=== PATIENT | female | born 1940 | race Caucasian/White ===

== ENCOUNTER 2017-07-27 07:28 | Day surgery (SDC) | payer MEDICARE ==
[2017-07-27] MEDS ORDERED: ATEN25TA PO (08:06)
[2017-07-27] MEDS ORDERED: VENTAER INH (08:06)
[2017-07-27] MEDS ORDERED: PROPOFOL 200 MG/20 ML AMP ONE ×3 (08:26→09:44)
--- NOTE | 2017-07-27 10:30 | ECHRPT ---
Indication: MR CONCLUSIONS Normal left ventricular size and wall thickness. The left ventricular systolic function is normal wi th an estimated ejection fraction in the range of 60-65%. Left ventricular diastolic function parameters a re normal. Moderate thickening of the mitral valve leaflets. Mitral annular calcification is present. No mitral valve stenosis. Vgagcbvn-qu-ughzgf mitral valve regurgitation. Posterior mitral valve leaflet prolapse. Mild thickening of the tricuspid valve leaflets. There is mild tricuspid valve regurgitation. There is estimated mild pulmonary hypertension present (range 40-50 mmHg). No tricuspid valve stenosis. BP: / HR: Rhythm: MEASUREMENTS (Male / Female) Normal Values Technical Quality: DOPPLER TR Peak Velocity 300.0 cm/s TR Peak Gradient 36.0 mmHg Medications Complications Proc. Components FINDINGS LEFT VENTRICLE Normal left ventricular size and wall thickness. The left ventricular systolic function is normal wi th an estimated ejection fraction in the range of 60-65%. Left ventricular diastolic function parameters a re normal. RIGHT VENTRICLE Normal right ventricular size and systolic function. LEFT ATRIUM The left atrial size is normal. RIGHT ATRIUM The right atrial size is normal. ATRIAL APPENDAGES Normal left atrial appendage size with no evidence of thrombus formation. ATRIAL SEPTUM Normal atrial septal thickness without atrial level shunting by limited color doppler interrogation. AORTA The aortic root and proximal ascending aorta are normal in size on limited imaging. MITRAL VALVE Moderate thickening of the mitral valve leaflets. Mitral annular calcification is present. No mitral valve stenosis. Eghanpae-cy-kimcga mitral valve regurgitation. Posterior mitral valve leaflet prolapse. AORTIC VALVE Trileaflet aortic valve. No aortic valve stenosis or regurgitation. TRICUSPID VALVE Mild thickening of the tricuspid valve leaflets. There is mild tricuspid valve regurgitation. There is estimated mild pulmonary hypertension present (range 40-50 mmHg). No tricuspid valve stenosis. VESSELS The inferior vena cava is normal in size. PULMONARY VALVE The pulmonary valve is not well visualized. PERICADIUM No pericardial effusion. Balaji Ellsworth MD, FACC (Electronically Signed) Final Date:27 July 2017 10:30
== END 2017-07-27 10:57 | disposition home or self-care (01) ==
LOC: HDOC 07:28 → HDIC 07:29 → HDOC 10:57
PROVIDERS: ATTEND Internal Medicine
DX: I34.0 Nonrheumatic mitral (valve) insufficiency (principal); I27.20 Pulmonary hypertension, unspecified; R00.2 Palpitations; R06.02 Shortness of breath
CPT/HCPCS: 93312; 93320; 93325

== ENCOUNTER 2017-08-08 06:13 | Day surgery (SDC) | payer MEDICARE ==
[~2017-08-08] VITALS: Ht 165.1 cm; Wt 48.0 kg
[~2017-08-08 06:13] MED LIST: ATEN25TA PO; VENTAER INH
[2017-08-08] MEDS ORDERED: IOHEXOL 350 MG/ML 50 ML BTL (for Cath Lab) OTHER ONE (06:14)
[2017-08-08] MEDS ORDERED: NS 1000P @30 MLS/HR (KVO) IV SCH (06:30)
[2017-08-08 06:48] VITALS: BP 115/76; PULSE 62; RESP 18; TEMP 98; O2SAT 99
[2017-08-08] MEDS ORDERED: HEPARIN-NS/PF INJ 1,000 ML ONE (08:38)
[2017-08-08] MEDS ORDERED: MIDAZOLAM HCL 2 MG/2 ML VIAL ONE (08:38)
[2017-08-08] MEDS ORDERED: ATROPINE SULFATE 1 MG/ML VIAL IV PUSH PRN (09:30)
[2017-08-08] MEDS ORDERED: LORazepam 2 MG/ML VIAL IV PUSH PRN (09:30)
[2017-08-08] MEDS ORDERED: LIDOCAINE HCL 1% 50 ML VIAL INFIL PRN (09:30)
[2017-08-08] MEDS ORDERED: BACITRACIN OINT 0.9 GM PKT TOP ONE (09:30)
[2017-08-08] MEDS ORDERED: MISC INFORMATION XX ONE (09:30)
--- NOTE | 2017-08-08 09:33 | CATHPROC ---
[employer] HIS Report Study Information Study Number Admission Scheduled Start Study Start [id number] Aug 08 2017 6:13AM 08/08/2017 Aug 08 2017 8:38AM [facility] Service Cardiac Catheterization Admit Source Facility Department Other [facility] - [facility] Physician and Clinical Staff Initial Balaji Ennis Pediatric Ophthalmologist Tal Forbes RN Recorder Kika Carrera,RT(R) Scrub Lucy Cobos,RT(R) Procedures Performed Procedure Location (Site) Vessel Name Coronary Angiograms LCA Left Coronary Coronary Angiograms RCA Right Coronary Wire insertion Fem Vein (right) Femoral Vein Equipment Time General Operator Description Size Mfg Part Number Used/Scraped [employer] CATHETER, FR.7 BALLOON [id number] 08:48 FR 7 Used INC. WEDGE PRESSURE *[id number] TRANSDUCER, TRPharmaxisAVE [id number] 08:48 KAPLAN HORVATH * Used W/STOCKCOCK *[id number] 534-518T *[id number] 534-521T *[id number] [id number] *[id number] 08:48 MEDLINE INDUSTRIES PACK, CCL CUSTOM * Used *[id number] 08:48 MEDLINE PACER PEN, SKIN DUAL W/ RULER * Used *[id number] 08:48 Pansieve MEDICAL WIRE, 3MMJ .035 180CM 180CM Used *[id number] 08:48 NAMIC MANIFOLD, 2 PORT * Used *[id number] 08:48 NAMIC MANIFOLD, 4 PORT * Used *[id number] 08:48 NYCOMED OMNIPAQUE, 350 MG, 150ML 150ML [id number] Used [id number] 08:48 [facility] BLANKET,WARM AIR CCL * Used *[id number] 08:48 TERUMO MEDICAL SHEATH, FR5 TERUMO (10CM) FR 5 Used *[id number] 08:48 TERUMO MEDICAL SHEATH, FR7 TERUMO (10CM) FR 7 Used *[id number] History: Current Medications Medication Dosage/Unit Route Frequency Last Date/Time Taken Albuterol Beta Gabriel History: Allergies Allergy Reaction NKA History: Risk Factors Family History of Hypertension Dyslipidemia Previous ND Previous Heart Failure Premature CAD Yes No Yes No No Prior Valve Prior PCI Prior CABG Surgery No No No Cerebrovascular Peripheral Artery Chronic Lung On Dialysis Diabetes Disease Disease Disease No No No Yes No History: Symptoms/Diagnosis Selection Items Palpitations SOB History: Stress Tests Stress or Imaging Studies Performed No History: Other Current Smoker No Labs Hgb (g/dl) Hct (%) WBC (l/cumm) Platelets (thousands) 11.60-17.00 35.00-51.00 4.00-11.00 150.00-450.00 14.1 43.4 5.6 112 Glucose (mg/dl) BUN (mg/dl) Creatinine (mg/dl) BUN:Creatinine (1:x) 74.00-106.00 7.00-18.00 0.50-1.30 10.00-20.00 92 18 0.8 22.5 Na (meq/l) K (meq/l) 136.00-145.00 3.50-5.10 144 4.7 INR (PTT:PT) 0.90-1.10 1 CPK-MB (ng/ML) 0.50-3.60 Not Drawn Medication Medication Total Dose (Bolus/Oral) Medication Total Dosage/Unit 1% XYLOCAINE 20 mL FENTANYL 25 mcg VERSED 1 mg Medications (Bolus/Oral) Medication Time Given Dosage/Unit Administered By Reason VERSED 08/08/2017 8:51:00 AM 1 mg Tal Forbes 1 mg VERSED given in lab by Tal Forbes RN in Left Antecubital via Peripheral IV. Ordered by Balaji Ellsworth. FENTANYL 08/08/2017 8:52:00 AM 25 mcg Tal Forbes 25 mcg FENTANYL given in lab by Tal Forbes RN in Left Antecubital via Peripheral IV. Ordered by Balaji Westbrook. 1% XYLOCAINE 08/08/2017 9:01:30 AM 20 mL Balaji Ellsworth 20 mL 1% XYLOCAINE given in lab by Balaji Ellsworth in Right Groin via Subcutaneous. Medication (Drip) Medication Time Given Dosage/Unit Concentration/Unit Diluent (ml) Solution IV Solutions 08/08/2017 8:41:53 AM 50 mL (IV) NaCl .9 IV Solutions given in lab by Tal Forbes RN in Left Antecubital via Peripheral IV. Pump/Drip Flow using NaCl .9. Initial Case Assessment Cardiovascular HR Rhythm NIBP Chest Pain 69 SR 119/65 0 Edema Present Skin color Skin None Normal Warm Dry Circulatory - Right Pulses Posterior Tibial Femoral 3 3 Scale (0,1,2,3,4,d) Circulatory - Left Pulses Posterior Tibial Femoral 3 3 Scale (0,1,2,3,4,d) Neurological State Oriented to time-place- Alert Moves all extremities person Respiration - General Respiration Rate SpO2 (%) (B/min) 14 100 Chronological Log Time Study Chronological Log 8:32:27 Patient arrived via Bed. 8:41:36 Patient Name, D.O.B, / Armband Verified By R.N. 8:41:37 Consent signed by the physician and the patient and verified by the [facility] staff. 8:41:38 Pre-op and post- op instructions given; patient acknowledges understanding of instructions . 8:41:38 Verbal Stimulation=2 Physical Stimulation=2 Airway=2 Respiration=2 TOTAL=8. (0=absent, 1=l imited, 2=present) 8:41:42 Patient has been NPO for More than 6Hrs. 8:41:43 Skin Breakdown- none per pt 8:41:44 Patient Warmer Placed on the Table. 8:41:46 Reema Prominences Protected 8:41:52 A # 20 IV was noted in the Antecubital (left). Grade = 0 8:41:53 IV Solutions given in lab by Tal Forbes RN in Left Antecubital via Peripheral IV. Pump /Drip Flow using NaCl .9. 8:41:54 History and physical on the chart or being dictated. Assessment: Initial Case, HR=69 BPM, Rhythm=SR, EICF=244/65 mmhg, Chest Pain=0, Edema=None, [place] r=Normal, Skin = Warm, Dry Right Pulses: Post Tib=3, Femoral=3 8:41:55 Left Pulses: Post Tib=3, Femoral=3 Neurological: State=Alert, Ox3, CORDOVA Respiration: Resp=14 B/min, PkL7=307 % 8:42:12 MD arrived. Vitals capture started with the following parameters, Patient=Adult, Interval=5 min, Initial Pre gjhzr=604 mmHg, 8:42:19 Deflation Rate=5 mmHg, Cuff placed on Left Arm 8:42:57 HR=59 bpm, FJHZ=959/65 mmhg, NyA5=625.0 %, Resp=8 B/min 8:47:16 Reference ECG taken 8:47:54 HR=96 bpm, RZVR=367/72 mmhg, EcK1=690.0 %, Resp=13 B/min 8:49:10 Bilateral groins prepped with 2% chlorhexidine, and draped after a 3 minute waiting time. 8:51:00 1 mg VERSED given in lab by Tal Forbes RN in Left Antecubital via Peripheral IV. Ordered by Balaji Ellsworth. 8:52:00 25 mcg FENTANYL given in lab by Tal Forbes RN in Left Antecubital via Peripheral IV. Ord ered by Balaji Ellsworth. 8:52:55 HR=60 bpm, PILK=076/57 mmhg, SpO2=97.0 %, Resp=13 B/min 8:53:32 Pressure channel 1 zeroed. 8:57:50 HR=59 bpm, YIGQ=553/60 mmhg, SpO2=95.0 %, Resp=14 B/min Time Out. Correct patient, correct procedure, correct physician, power injector not loaded with contrast with surgical 9:01:11 team present. Time Out Concurred by MD and individual staff in procedure. 9:01:24 Case Start 9:01:30 20 mL 1% XYLOCAINE given in lab by Balaji Ellsworth in Right Groin via Subcutaneous. 9:02:51 HR=64 bpm, OMDZ=378/56 mmhg, SpO2=97.0 %, Resp=15 B/min 9:02:51 Access site was Right Femoral Vein. 9:03:05 A SHEATH, FR7 TERUMO (10CM) FR 7 was advanced into the Fem Vein (right) using the Percutaneo us technique. 9:03:38 Access site was Right Femoral Artery. 9:03:42 A SHEATH, FR5 TERUMO (10CM) FR 5 was advanced into the Fem Art (right) using the Percutaneou s technique. 9:05:11 A CATHETER, FR.7 BALLOON WEDGE PRESSURE FR 7 was inserted via Fem Vein (right) Recorded Pressure: RA, HR=71, Condition=Condition 1 9:05:30 (Right Atrium) RA 108/6 Recorded Pressure: RV, HR=61, Condition=Condition 1 9:05:48 (Right Ventricle) RV 32/4/10 Recorded Pressure: MPA, HR=58, Condition=Condition 1 9:06:59 (Main Pulmonary Artery) MPA 30/10/18 9:07:34 Pressure channel 2 zeroed. 9:07:51 HR=56 bpm, DLDV=255/67 mmhg, SpO2=97.0 %, Resp=14 B/min 9:08:12 A WIRE, 3MMJ .035 180CM 180CM was inserted via Fem Vein (right). in swan 9:08:31 Wire removed A PIGTAIL ANG. INFINITI CATHETER FR 5 was advanced over a wire. OMNIPAQUE, 350 MG, 150ML 150ML w as used 9:09:00 for injections. Recorded Pressure: PCW, PCW, HR=62, Condition=Condition 1 9:09:08 (Pulmonary Capillary Wedge) PCW -4/-4/-5, (Pulmonary Capillary Wedge) PCW -/12/9 Recorded Pressure: LV, HR=41, Condition=Condition 1 9:10:34 (Left Ventricle) LV 96/4/7 Recorded Pressure: LV, PCW, HR=67, Condition=Condition 1 9:10:57 (Left Ventricle) LV 106/6/14, (Pulmonary Capillary Wedge) PCW 14/14/10 9:11:27 Saturation: Site=PA (Pulmonary Artery) , O2=78.3 %, Hgb=14.1 gm/dl, Condition=Condition 1. U sed in calculation. 9:12:04 Saturation: Site=Ao (Aorta) , O2=96.5 %, Hgb=14.1 gm/dl, Condition=Condition 1. Used in ca lculation. Recorded Pressure: LV, Ao, PCW, HR=56, Condition=Condition 1 (Left Ventricle) LV 101/2/12, 9:12:33 (Aorta) Ao 101/43/70, (Pulmonary Capillary Wedge) PCW 28/23/17 9:12:52 HR=57 bpm, GSCY=765/54 mmhg, SpO2=97.0 %, Resp=26 B/min 9:13:07 Catheter was removed 9:13:49 [place] Lyle Catheter Removed A JL 3.5 INFINITI CATHETER FR 5 was advanced over a wire. OMNIPAQUE, 350 MG, 150ML 150ML was u sed for 9:13:52 injections. After removing the current catheter a JL 5.0 INFINITI CATHETER FR 5 was advanced over a WIRE, 3MMJ .035 180CM 9:15:10 180CM. Recorded Pressure: Ao, HR=57, Condition=Condition 1 9:16:54 (Aorta) Ao 101/52/71 9:17:26 The LCA was injected and visualized at various angles. OMNIPAQUE, 350 MG, 150ML 150ML use d. 9:17:51 HR=71 bpm, DHQR=789/70 mmhg, SpO2=98.0 %, Resp=16 B/min After removing the current catheter a JR 4.0 INFINITI CATHETER FR 5 was advanced over a WIRE, 3MMJ .035 180CM 9:18:05 180CM. 9:19:45 The RCA was injected and visualized at various angles. OMNIPAQUE, 350 MG, 150ML 150ML use d. 9:20:21 Catheter was removed 9:20:59 Case End 9:22:38 Sheath(s) left in place, will be removed in Holding Area 9:22:45 Sterile dressing applied to site 9:22:50 No case complications noted. 9:22:52 HR=62 bpm, AQWD=403/61 mmhg, SpO2=99.0 %, Resp=17 B/min 9:22:56 Cine recording checked. 9:23:11 A Left and Right Heart Cath was performed. 9:23:30 Bedside Report will be given. 9:25:19 [facility] moved to [facility] End Study - Contrast Media Used In Study Contrast Total Opened (mL) Total Used (mL) Total Wasted (mL) Omnipaque 45 45 0 End Study - Maximum Contrast Load Max Contrast Load (mL) 300.0 End Study - Radiation Exposure Fluoro Time (minutes) 4.7 End Study - Patient Disposition Complications Transferred To Telemetry Bed
--- NOTE | 2017-08-08 10:03 | MA ---
cc: ALEXIS AGEE DATE: 08/08/2017 INDICATION Mitral regurgitation. PROCEDURE PERFORMED 1. Fluoroscopy interpretation 2. Coronary angiography 3. Left heart catheterization 4. Right heart catheterization. METHOD: The risks, benefits and alternatives discussed with the patient The patient understood, consented to the procedure. PROCEDURE The patient brought catheterization lab, placed on the catheterization table. Right groin prepped and draped in sterile fashion. Right groin was anesthetized 2% lidocaine. Right common femoral artery is cannulated 5-Burmese 11 cm sheath was placed out difficulty. Right femoral vein was accessed and a 7-Burmese sheath was placed without difficulty. His left heart catheterization; intra ventricular hemodynamics measured 101 over 2 mmHg. Right heart catheterization; 7-Burmese [place] pulmonary arterial catheter was advanced to the right femoral venous sheath to the level right atrium under fluoroscopic guidance. Hemodynamics were performed in all chambers while advancing to the pulmonary capillary wedge position. Hemodynamics were as follows. 1. Right atrial pressure measured 10 mmHg. 2. Right ventricular pressure measured 32 over 4 mmHg. 3. Pulmonary arterial pressure measured 30 over 10 mmHg 4. Pulmonary capillary wedge pressure measured 17 mmHg. 5. Cardiac output 5.4 liters per minute. 6. Cardiac index 3.7 liters per minute per meter squared. 7. Simultaneous left ventricular end-diastolic pressure and pulmonary capillary wedge pressure tracings were performed and analyzed. There was no evidence for mitral stenosis. CORONARY ANGIOGRAPHY: 1. Left main coronary is angiographically normal 2. left anterior descending coronary is angiographically normal 3. the left circumflex angiographically normal 4. right coronary is dominant vessel giving rise to a posterior descending branch. Right coronary is angiographically normal. CONCLUSION 1. Normal left-sided filling pressures. 2. Normal cardiac output and index. 3. Normal pulmonary pressures. 4. Angiographically normal coronary arteries. PLAN Discussed with the patient about the timing for consideration for mitral valve replacement or repair. MD JULIAN Jones/jody /9:26 AM /9:31 AM JI
[2017-08-08] MEDS ORDERED: PAPAVERINE INJ 60 MG, NITROGLYCERIN INJ 100 MCG, DILTIAZEM INJ 100 MG in SODIUM CHLORID... IRRIGATION SCH (14:15)
--- NOTE | 2017-08-08 14:26 | PD.CAR.PN ---
CVT Progress Note Subjective/Hospital Course: pt seen and evaluated , full consultation to follow sts data discussed with pt RISK SCORES About the STS Risk Calculator Procedure: MV Replacement Only Risk of Mortality: 4.124% Morbidity or Mortality: 23.705% Long Length of Stay: 11.921% Short Length of Stay: 18.383% Permanent Stroke: 1.876% Prolonged Ventilation: 15.537% DSW Infection: 0.153% Renal Failure: 3.917% Reoperation: 11.431% Objective: Vital Signs Date Time Temp Pulse Resp B/P (MAP) Pulse Ox O2 Delivery O2 Flow Rate FiO2 08/08/17 09:30 100 Room Air 08/08/17 06:48 98.0 62 18 115/76 (89) 99 Danna Alfaro Aug 08, 2017 14:26
--- NOTE | 2017-08-08 15:29 | RADRPT ---
EXAM DATE/TIME: 08/08/2017 14:18 [facility] COMPARISON: No previous studies available for comparison. INDICATIONS : Pre-op MVR. MEDICAL HISTORY : Cardiac disorder. Dyspnea. SURGICAL HISTORY : Cardiac catheterization. ENCOUNTER: Initial ACUITY: 1 day PAIN SCORE: 0/10 LOCATION: Bilateral neck PEAK SYSTOLIC VELOCITIES (cm/sec): ICA/CCA RATIO: Right: 1.0 Left: 1.6 ICA: Right: 106 Left: 158 CCA: Right: 110 Left: 102 ECA: Right: 92 Left: 101 VERTEBRAL: Right: 73 antegrade Left: 84 antegrade Elevated flow velocities and ICA/CCA ratios have been found to correlate with increased degrees of vessel stenosis, calculated as percentage of diameter relative to a normal segment of distal ICA/CCA FINDINGS: RIGHT CAROTID: No significant stenosis is visualized. The waveforms are within normal limits. LEFT CAROTID: No significant stenosis is visualized. The waveforms are within normal limits. VERTEBRAL ARTERIES: Antegrade flow is seen in both vertebral arteries. MISCELLANEOUS: None. CONCLUSION: 1. No significant carotid flow-limiting stenosis. 2. Antegrade vertebral artery flow bilaterally. Lalo River MD on August 08, 2017 at 15:25 Board Certified Radiologist. This report was verified electronically.
[2017-08-08 15:51] LABS: AUTOMATED NEUTROPHIL # 5.2 TH/MM3 (1.8-7.7); BASOPHIL % 0.1 % (0.0-2.0); EOSINOPHIL # 0.3 TH/MM3 (0-0.4); EOSINOPHIL % 4.2 % (0.0-4.0); HEMATOCRIT 36.5 % (35.0-46.0); HEMOGLOBIN 12.1 GM/DL (11.6-15.3); LYMPH % 21.5 % (9.0-44.0); LYMPHOCYTE # 1.6 TH/MM3 (1.0-4.8); MEAN CELL VOLUME 91.3 FL (80.0-100.0); MEAN CORPUSCULAR HEMOGLOBIN 30.2 PG (27.0-34.0); MEAN PLATELET VOLUME 8.2 FL (7.0-11.0); MONO % 6.5 % (0.0-8.0); MONOCYTE # 0.5 TH/MM3 (0-0.9); NEUT % 67.7 % (16.0-70.0); PLATELET COUNT 93 TH/MM3 (150-450); RED CELL DISTRIBUTION WIDTH 13.9 % (11.6-17.2); WHITE BLOOD COUNT 7.7 TH/MM3 (4.0-11.0)
[2017-08-08 15:55] LABS: BILIRUBIN, URINE NEG (NEG); BLOOD, URINE NEG (NEG); GLUCOSE,URINE NEG (NEG); KETONE, URINE NEG (NEG); MUCUS URINE FEW /lpf (OCC); NITRITE,URINE NEG (NEG); SQUAMOUS EPITHELIAL CELL URINE <1 /hpf (0-5); URINE COLOR YELLOW (YELLW/STRAW); URINE LEUKOCYTE ESTERASE NEG (NEG)
--- NOTE | 2017-08-08 15:59 | RADRPT ---
EXAM DATE/TIME: 08/08/2017 15:07 [facility] COMPARISON: No previous studies available for comparison. INDICATIONS : Pre operative for mitral valve replacment. RADIATION DOSE: 5.20 CTDIvol (mGy) MEDICAL HISTORY : Cardiovascular disease. SURGICAL HISTORY : None. ENCOUNTER: Initial ACUITY: 1 day PAIN SCALE: 2/10 LOCATION: Bilateral chest TECHNIQUE: Volumetric scanning of the chest was performed. Using automated exposure control and adjustment of t he mA and/or kV according to patient size, radiation dose was kept as low as reasonably achievable to obtain optimal diagnostic quality images. DICOM format image data is available electronically for r eview and comparison. Follow-up recommendations for detected pulmonary nodules are based at a minimum on nodule size and pa tient risk factors according to Fleischner Society Guidelines. FINDINGS: LUNGS: There are mild chronic interstitial changes. No concerning pulmonary nodules are identified. PLEURAE: There is no pleural thickening or pleural effusion. MEDIASTINUM: The heart is enlarged. There is no pericardial effusion. No significant hilar or mediastinal adenopat hy is seen. AXILLAE: Within normal limits. No lymphadenopathy. MUSCULOSKELETAL: There are mild degenerative changes within the thoracic spine. MISCELLANEOUS: The visualized upper abdominal organs demonstrate no acute abnormality. CONCLUSION: 1. Cardiomegaly. 2. No acute abnormality. Romeo Henning MD on August 08, 2017 at 15:53 Board Certified Radiologist. This report was verified electronically.
[2017-08-08 16:01] LABS: INTERNATIONAL NORMALIZED RATIO 1.1 RATIO; PROTHROMBIN TIME - PATIENT 10.9 SEC (9.8-11.6)
[2017-08-08 16:04] LABS: AST (GOT) 18 U/L (15-37); CHLORIDE 107 MEQ/L (98-107); SODIUM (NA) 144 MEQ/L (136-145)
--- NOTE | 2017-08-08 16:13 | RADRPT ---
EXAM DATE/TIME: 08/08/2017 15:27 [facility] COMPARISON: CT THORAX W/O CONTRAST, August 08, 2017, 15:07. INDICATIONS : Evaluate for pneumonia, pneumothorax, or communicable disease. Pre op mitral valve reaplacement. MEDICAL HISTORY : None. SURGICAL HISTORY : Cardiac cath. ENCOUNTER: Initial ACUITY: 1 day PAIN SCORE: 0/10 LOCATION: Bilateral chest FINDINGS: Minimal linear peripheral opacities in the left lung base. No significant focal pleural or parenchyma l opacities. The cardiomediastinal contours are unremarkable. Osseous structures are intact. CONCLUSION: 1. Minimal left lung base atelectasis versus scarring. Lalo River MD on August 08, 2017 at 16:09 Board Certified Radiologist. This report was verified electronically.
[2017-08-08 16:15] LABS: ALBUMIN 3.1 GM/DL (3.4-5.0); ALKALINE PHOSPHATASE 48 U/L (45-117); ALT (GPT) 21 U/L (10-53); BICARBONATE 28.8 MEQ/L (21.0-32.0); BLOOD UREA NITROGEN 20 MG/DL (7-18); CALCIUM 7.9 MG/DL (8.5-10.1); CREATININE 0.64 MG/DL (0.50-1.00); GLOMERULAR FILTRATION RATE 90 ML/MIN (>89); GLUCOSE,RANDOM 102 MG/DL (74-106); TOTAL BILIRUBIN ADULT 0.9 MG/DL (0.2-1.0); TOTAL PROTEIN 5.8 GM/DL (6.4-8.2)
--- NOTE | 2017-08-08 16:29 | MB ---
cc: VERO HOOKS M.D. DATE OF CONSULTATION: 08/08/2017 REASON FOR CONSULTATION: 76-year-old female patient of Dr. Ernesto deutsch and Dr. Garret east that has been having some worsening shortness of breath of the past year also complaining of some intermittent palpitations. She had some atypical chest discomfort and had been noticing that she is beginning of breath for a easily. She is very active. She cartons walks that her walking. She has a little short of breath after couple blocks. She underwent echocardiogram at Dr. East's office and then underwent transesophageal echocardiogram which showed an ejection fraction of 60-65%, moderate to severe mitral valve regurgitation. Posterior mitral valve leaflet prolapse, mild tricuspid regurgitation with some mild pulmonary hypertension range of 40-50 mmHg. There was no mitral valve stenosis, moderate thickening of the mitral valve leaflets. She then underwent cardiac cath today by Dr. East which showed no evidence of coronary disease. They did do right-sided heart pressures, that she had artery pressures of 10, RV pressure 32 over 4, PA pressure of 35 over 10, wedge pressure of 17. Cardiac output of 5.4 with an index of 3.6. We were consulted to evaluate for mitral valve repair versus mitral valve replacement. PAST MEDICAL HISTORY: The patient's past medical history significant for mitral valve regurgitation. History of palpitations, she has been on atenolol for over 30 years. History of chronic thrombocytopenia which has been worked up in the past and is stable right now at 112. History of asthma. PAST SURGICAL HISTORY: She has had no past surgical history. ALLERGIES No known allergies MEDICATIONS Home meds include 1. Atenolol 25 daily. 2. Ventolin inhaler. FAMILY HISTORY The patient . She does have a niece, Katelyn Kuhn [phone] which is also her Power employment attorney. SOCIAL HISTORY: history of prior tobacco abuse. Retired, no alcohol. SOCIAL HISTORY Father from cancer. Mother from heart disease. REVIEW OF SYSTEMS: IN GENERAL: No night sweats, fever, heat and cold intolerance. SKIN: No psoriasis, itching or hives. HEAD, EYES, EARS, NOSE, AND THROAT: No blurred vision, hearing loss. RESPIRATORY: Positive for shortness of breath with some exertion. CARDIOVASCULAR SYSTEM: Some atypical chest discomfort positive for history of palpitations. GASTROINTESTINAL: No diarrhea, vomiting. Genitourinary: No burning frequency, urgency CENTRAL NERVOUS SYSTEM: No history of TIA, CVA, seizure disorder, ENDOCRINE: Endocrinology no history of hypothyroidism and/or diabetes on exam. PHYSICAL EXAMINATION: VITAL SIGNS: Blood pressure 115/70, heart rate 62, temperature max 98 on O2 sat 100 on room air. IN GENERAL: Patient is awake, alert in no acute distress. HEAD, EYES, EARS, NOSE, AND THROAT: head is normocephalic, atraumatic. Pupils equal and reactive. Oral mucosa pink, moist. She does have a partial in the left lower plate. She does wear glasses. NECK: Supple. No JVD. HEART: The heart sounds S1-S2, 2/6 holosystolic murmur at the apex. LUNGS: Clear to auscultation. No wheezes, rales or rhonchi. ABDOMEN: Soft, nontender. No masses or organomegaly. EXTREMITIES: No cyanosis, clubbing or edema. SKIN: No lesions, no rashes noted. NEUROLOGIC: She is a and O x4. Moves all extremities. No focal deficits. LABORATORY FINDINGS: Recent lab work shows INR 1.0, hemoglobin 14, hematocrit of 43, white cell count 5.6, platelet count is 112 which is stable per the patient. Sodium 144, potassium 4.7, BUN of 18, creatinine 0.84 CARDIAC TESTING: Transesophageal echo as above in HPI. Her EKG shows sinus rhythm with an incomplete right bundle branch block. IMPRESSION This is a very pleasant 76-year-old female originally from [place] with history of mitral valve regurgitation with worsening symptoms. Patient underwent cardiac cath with no coronary disease, ejection fraction 60-65. The cardiac films in the echo will be evaluated by Dr. Derek Hooks. In the meantime she will have a CT of the chest. She does have some right pectus excavatum and will need to have that CT to evaluate the approach for her surgery and the decision will be made as to a replacement versus of repair by Dr. Hooks. Procedures, alternatives and risks will be a discussed with the patient and plan will be surgery as an outpatient. Agree with above. Pt examined and chart reviewed with niece in presence. She is travelling abroad tomorrow and will be [place] on 08[place]24[place]17. Will schedule her surgery after that. Will plan on mini-MVR. If the valve is not repairable, a replacement will be performed. The options of mechanical vs tissue valve was discussed and all questions answered. She wishes to opt for the tissue valve if replacement is undertaken. Thank you for allowing me to participate in the care of this very pleasant lady. Derek Mascorro /2:51 PM /3:32 PM [id number]
[2017-08-08 16:51] LABS: HEMOGLOBIN A1C 5.3 % (4.3-6.0)
== END 2017-08-08 17:06 | disposition home or self-care (01) ==
LOC: HDIC 06:13 → HDOC 06:13
PROVIDERS: ATTEND Internal Medicine
DX: I34.0 Nonrheumatic mitral (valve) insufficiency (principal); I34.1 Nonrheumatic mitral (valve) prolapse; I27.20 Pulmonary hypertension, unspecified; Q67.6 Pectus excavatum; D69.6 Thrombocytopenia, unspecified; J45.909 Unspecified asthma, uncomplicated; Z87.891 Personal history of nicotine dependence; Z01.818 Encounter for other preprocedural examination
CPT/HCPCS: 71046; 71250; 80053; 81001; 82810; 83036; 85025; 85610; 86850; 86900; 86901; 87641; 93460; 93880; 94010; 99152; 99153; C1769; C1893; J1644; J2250; J3010; Q9967

== ENCOUNTER → 2017-08-28 | Outpatient (CLI) | payer MEDICARE ==
[2017-08-28 14:14] LABS: AUTOMATED NEUTROPHIL # 3.8 TH/MM3 (1.8-7.7); BASOPHIL % 0.2 % (0.0-2.0); EOSINOPHIL # 0.3 TH/MM3 (0-0.4); EOSINOPHIL % 4.4 % (0.0-4.0); HEMATOCRIT 38.3 % (35.0-46.0); LYMPH % 26.9 % (9.0-44.0); LYMPHOCYTE # 1.6 TH/MM3 (1.0-4.8); MEAN CELL VOLUME 91.1 FL (80.0-100.0); MEAN CORPUSCULAR HEMOGLOBIN 30.8 PG (27.0-34.0); MEAN CORPUSCULAR HGB CONC 33.9 % (32.0-36.0); MEAN PLATELET VOLUME 8.8 FL (7.0-11.0); MONO % 5.3 % (0.0-8.0); MONOCYTE # 0.3 TH/MM3 (0-0.9); NEUT % 63.2 % (16.0-70.0); PLATELET COUNT 91 TH/MM3 (150-450); RED CELL DISTRIBUTION WIDTH 13.8 % (11.6-17.2); WHITE BLOOD COUNT 6.1 TH/MM3 (4.0-11.0)
[2017-08-28 14:16] LABS: PROTHROMBIN TIME - PATIENT 10.4 SEC (9.8-11.6)
[2017-08-28 14:42] LABS: ALBUMIN 3.9 GM/DL (3.4-5.0); AST (GOT) 23 U/L (15-37); BICARBONATE 31.8 MEQ/L (21.0-32.0); BLOOD UREA NITROGEN 16 MG/DL (7-18); CHLORIDE 103 MEQ/L (98-107); CREATININE 0.64 MG/DL (0.50-1.00); GLOMERULAR FILTRATION RATE 90 ML/MIN (>89); GLUCOSE,FASTING 77 MG/DL (74-99); SODIUM (NA) 140 MEQ/L (136-145)
[2017-08-28 14:43] LABS: ALT (GPT) 24 U/L (10-53)
[2017-08-28 14:45] LABS: ALKALINE PHOSPHATASE 51 U/L (45-117); TOTAL BILIRUBIN ADULT 1.2 MG/DL (0.2-1.0); TOTAL PROTEIN 6.8 GM/DL (6.4-8.2)
== END ==
LOC: CPRE 12:06
PROVIDERS: ATTEND Thoracic Surgery (Cardiothoracic Vascular Surgery)
DX: Z01.812 Encounter for preprocedural laboratory examination (principal); I34.1 Nonrheumatic mitral (valve) prolapse
CPT/HCPCS: 36415; 80053; 85025; 85610; 86850; 86900; 86901; 87640; 87641

== ENCOUNTER 2017-08-31 05:31 | Inpatient (IN) | payer MEDICARE ==
[~2017-08-31] VITALS: Ht 165.1 cm; Wt 52.0 kg
[2017-08-31] MEDS ORDERED: INSULIN REGULAR 100 UNITS in NS 100 ML IV PRN (06:15)
[2017-08-31] MEDS ORDERED: DEXTROSE 50% IN WATER 50 ML VIAL(D50) IV PUSH PRN ×2 (06:15→13:15)
[2017-08-31] MEDS ORDERED: INSULIN HUMAN REGULAR 1,000 UNITS/10 ML VIAL SQ PRN (06:15)
[2017-08-31] MEDS ORDERED: POVIDONE IODINE 5% (ANTISEPSIS KIT) 4 APPLICATIONS EACH NARE PRN (06:15)
[2017-08-31] MEDS ORDERED: SODIUM CHLORIDE 0.9% FLUSH 10 ML FLUSH IV FLUSH PRN ×3 (06:15→13:15)
[2017-08-31] MEDS ORDERED: METOPROLOL TARTRATE 25 MG TAB PO PRN (06:15)
[2017-08-31] MEDS ORDERED: CHLORHEXIDINE GLUCONATE 2 % 1 PACK (2 CLOTHS) TOPICAL PRN (06:15)
[2017-08-31] MEDS ORDERED: SODIUM CHLORID 0.9% 500 ML IV PRN (06:15)
[2017-08-31] MEDS ORDERED: LACTATED RINGER'S 1000 ML IV PRN (06:15)
[2017-08-31] MEDS ORDERED: METOPROLOL TARTRATE 25 MG TAB PO SCH (06:30)
[2017-08-31] MEDS ORDERED: ceFAZolin 2 GM PREMIX 50 ML IV SCH (06:30)
[2017-08-31] MEDS ORDERED: CEFAZOLIN 500 MG in NS IRR BTL 500 ML IRRIGATION SCH (06:30)
[2017-08-31] MEDS ORDERED: CHLORHEXIDINE GLUCONATE 4% SOLN 120 ML BTL TOPICAL SCH (06:30)
[2017-08-31] MEDS ORDERED: ceFAZolin INJ 1,000 MG VIAL ONE (06:43)
[2017-08-31] MEDS ORDERED: ceFAZolin 2 GM PREMIX 50 ML ONE (06:43)
[2017-08-31] MEDS ORDERED: HEPARIN SODIUM - SQ 10,000 UNITS/ML VIAL ONE (06:43)
[2017-08-31] MEDS ORDERED: VANCOMYCIN HCL 1000 MG VIAL ONE (06:43)
[2017-08-31] MEDS ORDERED: MIDAZOLAM HCL 5 MG/ML VIAL (1 ML) ONE (06:59)
[2017-08-31] MEDS ORDERED: fentaNYL CITRATE 1000 MCG/20 ML VIAL ONE (06:59)
[2017-08-31] MEDS ORDERED: BUPIVACAINE LIPOSO PF 1.3% INJ 20 ML, DEXAMETHASONE INJ 4 MG, MORPHINE INJ 8 MG in SODI... IRRIGATION ONE (07:45)
[2017-08-31] MEDS ORDERED: HEPARIN SODIUM - IV 10,000 UNITS/10 ML VIAL ONE (07:46)
[2017-08-31] MEDS ORDERED: CALCIUM CHLORIDE 10% SOLN 1 GRAM/10 ML SYR ONE (07:46)
[2017-08-31] MEDS ORDERED: POTASSIUM CHLORIDE 40 MEQ/20 ML VIAL ONE (07:46)
[2017-08-31] MEDS ORDERED: CUSTODIOL HTK IRR SOLN 2,000 ML ONE (07:46)
[2017-08-31] MEDS ORDERED: ALBUMIN 25% INJ 50 ML IV ONE (07:47)
[2017-08-31] MEDS ORDERED: MANNITOL INJ 100 ML ONE (07:47)
[2017-08-31] MEDS ORDERED: SODIUM BICARBONATE 8.4% INJ 100 ML ONE (07:48)
[2017-08-31] MEDS ORDERED: EPINEPHrine HCL (1:1000) 1 MG/ML VIAL IV ONE (12:00)
[2017-08-31] MEDS ORDERED: VECURONIUM BROMIDE 10 MG VIAL IV ONE (12:00)
[2017-08-31] MEDS ORDERED: NITROGLYCERIN 50 MG/DEXTROSE 5% SOLN 250 ML BTL IV ONE (12:00)
[2017-08-31] MEDS ORDERED: HEPARIN SODIUM - SQ 10,000 UNITS/ML VIAL SQ ONE (12:00)
[2017-08-31] MEDS ORDERED: PHENYLEPH/NS 1000 MCG/10 ML SYR IV ONE (12:00)
[2017-08-31] MEDS ORDERED: MAGNESIUM SULFATE 1 GM/2 ML VIAL IV ONE (12:00)
[2017-08-31] MEDS ORDERED: ePHEDrine/NS 25 MG/5 ML SYRINGE IV ONE (12:00)
[2017-08-31] MEDS ORDERED: AMINOCAPROIC ACID INJ 250 MG/ML 20 ML VIAL IV ONE (12:00)
[2017-08-31] MEDS ORDERED: PHENYLEPHRINE HCL 10 MG/ML VIAL IV ONE (12:00)
[2017-08-31] MEDS ORDERED: LIDOCAINE HCL 2% 100 MG/5 ML SYRINGE IV PUSH ONE (12:00)
[2017-08-31] MEDS ORDERED: DEXMEDETOMIDINE HCL 200 MCG/2 ML VIAL IV ONE (12:00)
[2017-08-31] MEDS ORDERED: PROTAMINE SULFATE 250 MG/25 ML VIAL IV ONE (12:00)
[2017-08-31] MEDS ORDERED: CALCIUM CHLORIDE 10% SOLN 1 GRAM/10 ML SYR IV ONE (12:00)
[2017-08-31] MEDS ORDERED: EPINEPHrine HCL (1:1000) 30 MG/30 ML VIAL IV ONE (12:00)
[2017-08-31] MEDS ORDERED: POTASSIUM CHLOR 20 MEQ PREMIX 100 ML ONE (13:00)
[2017-08-31] MEDS ORDERED: DOBUTamine PREMIX DRIP 250 ML IV PRN (13:06)
[2017-08-31] MEDS ORDERED: hydrALAZINE HCL 20 MG/ML VIAL IV PUSH PRN (13:15)
[2017-08-31] MEDS ORDERED: NITROGLYCERIN-D5W 50 MG/250 ML 250 ML IV PRN (13:15)
[2017-08-31] MEDS ORDERED: INSULIN REGULAR (IV INFUSION) 100 UNITS in SODIUM CHLORIDE 0.9% INJ 99 ML IV PRN (13:15)
[2017-08-31] MEDS ORDERED: MEPERIDINE HCL 25 MG/ML VIAL IV PUSH PRN (13:15)
[2017-08-31] MEDS ORDERED: KETOROLAC TROMETHAMINE 30 MG/ML (IVP) VIAL IV PUSH PRN (13:15)
[2017-08-31] MEDS ORDERED: PHENYLEPHRINE INJ 40 MG in DEXTROSE 5% IN WATE 500 ML INJ 496 ML IV PRN ×2 (13:15)
[2017-08-31] MEDS ORDERED: CALCIUM CHLORIDE INJ 1 GM in SODIUM CHLORIDE 0.9% INJ 100 ML IV PRN (13:15)
[2017-08-31] MEDS ORDERED: ACETAMINOPHEN 650 MG SUPP RECTAL PRN (13:15)
[2017-08-31] MEDS ORDERED: SODIUM BICARBONATE 8.4% SOLN 50 MEQ/50 ML VIAL IV PUSH PRN ×2 (13:15)
[2017-08-31] MEDS ORDERED: MORPHINE SULFATE 2 MG/ML INJ IV PUSH PRN (13:15)
[2017-08-31] MEDS ORDERED: ACETAMINOPHEN 325 MG TAB PO PRN (13:15)
[2017-08-31] MEDS ORDERED: POTASSIUM CHLOR 20 MEQ PREMIX 100 ML IV PRN ×2 (13:15)
[2017-08-31] MEDS ORDERED: CALCIUM CHLORIDE 10% 1 GRAM/10 ML VIAL IV PUSH PRN (13:15)
[2017-08-31] MEDS ORDERED: CLEVIDIPINE INJ 50 ML IV PRN (13:15)
[2017-08-31] MEDS ORDERED: DEXMEDETOMIDINE INJ 200 MCG in SODIUM CHLORIDE 0.9% INJ 50 ML IV PRN (13:15)
[2017-08-31] MEDS ORDERED: MAGNESIUM SULFATE INJ 2 GM in SODIUM CHLORIDE 0.9% INJ 100 ML IV PRN ×4 (13:15)
[2017-08-31] MEDS ORDERED: DOPamine INJ PREMIX 500 ML IV PRN (13:15)
[2017-08-31] MEDS ORDERED: RESP: ALBUTEROL 2.5 MG/IPRATROPIUM 0.5 MG NEB (PRN) NEB (13:15)
[2017-08-31] MEDS ORDERED: METOPROLOL TARTRATE 5 MG/5 ML VIAL IV PUSH PRN (13:15)
[2017-08-31] MEDS ORDERED: RESP: RACEPINEPHRINE 2.25% 0.5 ML NEB NEB PRN (13:15)
[2017-08-31] MEDS ORDERED: POTASSIUM CHLORIDE 20 MEQ CONTROLLED RELEASE TAB PO PRN ×2 (13:15)
[2017-08-31] MEDS ORDERED: Post-op Orders (for Pharmacy) OTHER ONE (13:30)
[2017-08-31 13:31] VITALS: BP_SYST 101; BP_SYST 94; BP_DIAS 51; BP_DIAS 68; PULSE 113; PULSE 79; RESP 8; TEMP 97.5; O2SAT 88
[2017-08-31] MEDS ORDERED: ALBUMIN 25% INJ 0 ML IV ONE (13:41)
[2017-08-31 13:46] VITALS: O2SAT 96
[2017-08-31] MEDS: POTASSIUM CHLOR 20 MEQ PREMIX 100 ML IV PRN ×2 (14:00→15:39)
--- NOTE | 2017-08-31 14:16 | RADRPT ---
EXAM DATE/TIME: 08/31/2017 13:47 [facility] COMPARISON: No previous studies available for comparison. INDICATIONS : Mitral valve repair MEDICAL HISTORY : Cardiovascular disease. SURGICAL HISTORY : cardiac catherization ENCOUNTER: Initial ACUITY: 1 day PAIN SCORE: Non-responsive. LOCATION: Bilateral chest FINDINGS: Interstitial vascular prominence is evident in both lungs. There some mild airspace disease on the ri ght. There is no mass or pneumothorax. Right jugular central venous catheter and right thoracostomy tube are noted following mitral valve re placement. Heart is mildly enlarged. CONCLUSION: Status post mitral valve repair. Chronic lung disease with mild interstitial vascular congestion. Mild right basilar airspace disease. No evidence of pneumothorax. Amol Bauman MD on August 31, 2017 at 14:11 Board Certified Radiologist. This report was verified electronically.
[2017-08-31] MEDS: LACTATED RINGER'S 1000 ML INJ 500 ML IV PRN ×2 (14:32→14:33)
[2017-08-31 15:00] VITALS: BP_SYST 94; BP_SYST 97; BP_DIAS 60; BP_DIAS 67; PULSE 115; RESP 10; TEMP 94.5; O2SAT 99
[2017-08-31] MEDS ORDERED: EPINEPHrine 2 MG/D5W 250 ML IV PRN ×2 (15:00)
--- NOTE | 2017-08-31 15:04 | PD.CONS ---
[facility] Service Critical Care Medicine Consult Requested By Dr. Acosta Reason for Consult perioperative management of medical comorbidities Primary Care Physician Ernesto Flores MD, PhD History of Present Illness This is a 76yF with history of severe mitral regurgitation with posterior leaflet prolapse, EF 60% who underwent elective mitral valve replacement. Her operative course was complicated by sinus bradycardia, requiring epicardial pacing to maintain adequate cardiac output. At the conclusion of the case, she was extubated and sent to the CVICU. She came out of the OR on epinephrine at 5 mcg/min as an inopressor. The patient is arousing from anesthesia. I evaluated her upon arrival to the CVICU. due to her somnolence, no additional information is obtainable from the patient. Review of Systems ROS Limitations: Clinical Condition, Altered Mental Status ROS arousing from anesthesia Past Family Social History Allergies: Coded Allergies: No Known Allergies (Unverified , 08/08/17) Past Medical History mitral valve regurgitation palpitations for which she takes atenolol chronic thrombocytopenia, stable around 110s asthma Past Surgical History none Reported Medications Ventolin Hfa 18 GM Inh (Albuterol Sulfate) 90 Mcg/Act Aer 2 Puff INH Q4-6H PRN Atenolol 25 Mg Tab 25 Mg PO HS Active Ordered Medications See MAR Family History reviewed in the chart and found to be noncontributory to her acute illness Social History former smoker, denies etoh. Physical Exam Vital Signs Vital Signs Date Time Temp Pulse Resp B/P (MAP) Pulse Ox O2 Delivery O2 Flow Rate FiO2 08/31/17 14:00 97 Non-Rebreather 100 08/31/17 13:46 96 Venturi Mask 6.00 50 08/31/17 13:45 79 108/52 08/31/17 13:31 97.5 113 8 101/68 (79) 88 94/51 (65) 08/31/17 13:31 79 08/31/17 13:31 79 08/31/17 13:31 91 Nasal Cannula 5.00 08/31/17 06:25 98.1 68 20 130/71 (90) 98 Physical Exam gen: elderly female, lying in bed, arousing from anesthesia. heent: perrl. mucous membranes moist. neck: right IJ introducer clean dry intact. trachea midline. no jvd. chest: sternotomy site clean dry, dressing intact. 2 chest tubes exit subxiphoid , 70cc sanguinous output after 1st hour, to suction. equal chest rise. clear anteriorly. + pericardial friction rub. cv: v-paced rhythm. HR 80. abd: soft, nontender, nondistended, no guarding. extr: no peripheral edema. extremities are warm and well perfused. neuro: RASS -2. arousing from anesthesia. no focal deficits. moves all extremities. Laboratory Date/Time Source Procedure Growth Status 08/31/17 10:24 Wound Other Fungal Smear Pending Received 08/31/17 10:24 Wound Other Fungal Culture Pending Received Assessment and Plan Assessment and Plan Assessment: 76yF POD 0 s/p mini-mitral valve replacement, bioprosthetic. will wean epinephrine as tolerated, close uop monitoring, close chest tube output monitoring. keep epicardial pacing wires VVI @ 80 overnight. s/p mini-mitral valve replacement, bioprosthetic 08/31 perioperative myocardial stunning post-operative atelectasis sinus bradycardia plan: - wean epi - watch uop closely - monitor chest tube output. to suction - epicardial wires VVI @ 80. keep paced overnight for chronotropic augmentation of cardiac output - aggressive pulmonary toilet - wean o2 for goal spo2 > 92% - ivf resuscitation to maintain adequate cardiac preload. critical care will follow along with you while patient remains in the CVICU. Bruce Nixon MD Aug 31, 2017 15:04
[2017-08-31] MEDS: ACETAMINOPHEN 1000 MG/100 ML 100 ML IV SCH ×2 (15:41→20:50)
[2017-08-31] MEDS: RESP: ALBUTEROL 2.5 MG/IPRATROPIUM 0.5 MG NEB (SCH) NEB ×2 (16:04→22:00)
--- NOTE | 2017-08-31 16:07 | PD.OP ---
cc: Derek Acosta MD; Balaji Ellsworth MD Operative Report Procedure: 1. Minimally Invasive Mitral Valve Replacement with a 29 mm Mosaic Cinch Tissue Valve 2. Right Femoral Artery and Vein Cannulation 3. Primary Closure of Atrial Septal Defect 4. Intercostal Nerve Block Surgeon: Derek Acosta Structural Metal Worker(s): Ynes Huddleston Operation and Findings: PREOPERATIVE DIAGNOSES 1. Severe Mitral Insufficiency 2. CHF POSTOPERATIVE DIAGNOSES 1. Severe Mitral Insufficiency 2. CHF 3. Interatrial Septal Defect SURGICAL PROCEDURE 1. Minimally Invasive Mitral Valve Replacement with a 29 mm Mosaic Cinch Tissue Valve 2. Right Femoral Artery and Vein Cannulation 3. Primary Closure of Atrial Septal Defect 4. Intercostal Nerve Block ENTERPRISE SERVICES MANAGER GISSELL Manley ANESTHESIA General endotracheal. LIAISON ENGINEER César Obrien CRNA, Margi Keith MD PREPARATION ChloraPrep. NEEDLE, SPONGE AND INSTRUMENT COUNT Correct. DRAINS 32 Fr Chest Tube. COMPLICATIONS None. INDICATIONS The patient is a 76 -year-old with severe mitral regurgitation, presenting for surgical correction of the above pathology. DESCRIPTION OF PROCEDURE The patient was brought to the operating room and placed supine on the OR table. Following the induction of adequate general endotracheal anesthesia and placement of appropriate monitoring devices, the patient was then prepped and draped in the standard sterile fashion. Intraoperative SERGIO revealed severe MR with thickened and rheumatic leaflets. The area of coaptation of the leaflets was very small and the chords were elongated with the plane of coaptation in the left atrium. An incision was made over the right femoral vessels and the Common Femoral artery and vein dissected free. The patient was systemically heparinized and anticoagulation monitored by serial ACT measurements. A pursestring sutures of 5 -0 Prolene was placed on the femoral artery and another one on the femoral vein. At this point, arterial and venous cannulae were introduced using the Seldinger technique with SERGIO guidance with confirmation of the venous cannula in the SVC, and attached to the arterial and venous components of the bypass circuit respectively. A mini-thoracotomy (6 cm) was then performed in the 4th ICS anterior axillary line and carried down to the pleura. The right pleural space was entered. The patient was placed on cardiopulmonary bypass. The pericardium was then opened longitudinally approximately 2.5-3 cm anterior to the right phrenic nerve from the IVC to the ascending aorta. Stay sutures were placed and the heart exposed. The aorta was dissected free from the underlying tissue and an antegrade needle placed on the proximal aorta. Continuous diffusion of CO2 was used from hereon until the closure. The crossclamp was applied and 1.6 L of antegrade cardioplegia solution ( Detention HTK) was given. Upon achieving adequate diastolic arrest of the heart the inter-atrial groove was dissected free. The left atrium was opened and the mitral valve analyzed. Mitral valve exposure was obtained using the atrial lift retractor and the Visor. The valve was very thickened and rheumatic appearing with a cleft in the anterior leaflet and associated perforation in the leaflet communicating with an interatrial septal defect. Therefore plans were made to proceed with replacement of the mitral valve. The ASD was closed primarily with a running 4-0 Prolene stitch. The anterior leaflet was excised while preserving the primary chords. Horizontal mattress sutures of interrupted 2-0 Ethibond were placed on the mitral annulus with pledgets on the atrial side. After adequate sizing, a 29 mm Mosaic Cinch tissue Mitral valve was brought in the surgical field and the sutures passed through the skirt and the valve was situated and anchored with the Cor-Knot device. This appeared to be a good fit. Gradual rewarming was initiated and the septum closed closed in 2 layers with a 4-0 Prolene suture. Ventricular pacing wires were placed and exited through the chest drain site. With the aortic root vent on suction, the cross clamp was removed and upon achieving normothermic cardiac activity, patient was weaned from CPB without any difficulty. Transesophageal echocardiography revealed a well-situated mitral prosthesis with no evidence of perivalvular leak and no mitral stenosis or regurgitation. No ASD was identified. Protamine was given. Decannulation was performed and all sites were inspected for hemostasis. The femoral artery had a good distal and pedal pulse. At this point the closure was undertaken. Intercostal nerve block was performed using Exparel at the level of the incision as well as three rib spaces above and below. A 32 Fr chest tube placed in the pleural space. The intercostal space was approximated with 2 pericostal sutures of #1 Vicryl. The musculo-fascial layer was then closed in 2 layers. The skin was reapproximated with subcuticular stitch and Dermabond. Similarly, after irrigation with antibiotic solution, the femoral incision was closed in 2 layers and the skin closed with subcuticular stitch and Dermabond. The patient tolerated the procedure well and was transferred to CVICU in stable condition. Derek Acosta MD Aug 31, 2017 16:07
--- NOTE | 2017-08-31 16:07 | PD.CAR.PN ---
CVT Progress Note Subjective/Hospital Course: 76-year-old female patient of Dr. Ernesto deutsch and Dr. Garret east that has been having some worsening shortness of breath of the past year also complaining of some intermittent palpitations. She had some atypical chest discomfort and had been noticing that she is beginning of breath for a easily. She is very active. She cartons walks that her walking. She has a little short of breath after couple blocks. She underwent echocardiogram at Dr. East' s office and then underwent transesophageal echocardiogram which showed an ejection fraction of 60-65%, moderate to severe mitral valve regurgitation. Posterior mitral valve leaflet prolapse, mild tricuspid regurgitation with some mild pulmonary hypertension range of 40-50 mmHg. There was no mitral valve stenosis, moderate thickening of the mitral valve leaflets. She then underwent cardiac cath today by Dr. East which showed no evidence of coronary disease. We were consulted to evaluate for mitral valve repair versus mitral valve replacement. PAST MEDICAL HISTORY: mitral valve regurgitation, History of palpitations, she has been on atenolol for over 30 years, chronic thrombocytopenia which has been worked up in the past , History of asthma. pt was elective admitted for Mitral valve replacement Objective: Vital Signs Date Time Temp Pulse Resp B/P (MAP) Pulse Ox O2 Delivery O2 Flow Rate FiO2 08/31/17 15:00 94.5 115 10 94/67 (76) 99 97/60 (72) 08/31/17 15:00 113 08/31/17 15:00 115 08/31/17 15:00 115 97/60 08/31/17 15:00 94.5 08/31/17 14:15 112 119/66 08/31/17 14:00 97 Non-Rebreather 100 08/31/17 14:00 79 111/54 08/31/17 13:46 96 Venturi Mask 6.00 50 08/31/17 13:45 79 108/52 08/31/17 13:31 97.5 113 8 101/68 (79) 88 94/51 (65) 08/31/17 13:31 79 08/31/17 13:31 79 08/31/17 13:31 91 Nasal Cannula 5.00 08/31/17 06:25 98.1 68 20 130/71 (90) 98 Danna Alfaro Aug 31, 2017 16:07
--- NOTE | 2017-08-31 16:17 | HHI.FF ---
Face to Face Verification Diagnosis: (1) Asthma (2) Thrombocytopenia (3) S/P MVR (mitral valve replacement) (4) Mitral valve regurgitation Home Health Nursing Order: Medication education-adverse effect Wound care and dressing changes Nursing assessment with vital signs Instructions: Heart and Vascular Surgery patients *Special attention to sternal dressing Mandatory frequency Assess and evaluation, 4 days in a row The next week 3X week 2 times a week for 4 weeks 1 time a week for 5 weeks Schedule Heart and Vascular patients for full 60 day certification period Initial visit Review Open Heart Surgery Discharge Instructions (Sternal precautions, Activity, Elastic hose, Incision care, Driving, Incentive spirometry, Smoking, [place], Work and other) Need Betadine to paint incision Medication reconciliation Importance of follow up care/ check on appointments Make calendar record temperature daily When to call [facility] nurse, review instructions, phone list Incentive Spirometry, demonstration Visit 1- Begin discharge instruction for patient family and/ or caregiver using teach back method- Signs and symptoms of infection Disease characteristics Medicines and side effects Foods and nutrition/ appetite Infection control/ hand washing/ hygiene Visit 2- Continue teaching Discharge instructions- include additional information on smoking cessation , sternal dressing (sternal vac) Visit 3- Continue teaching- Cough and deep breathing, incision monitoring. Choose my plate Visit 4- Continue teaching- Discuss limitations Discuss how they are feeling Discuss progress toward goals Remaining visits- continue teaching and monitoring PREVENA Single Use Negative Wound Therapy System Caregiver Instruction Sheet 1. A Prevena dressing system was applied to the chest incision during surgery , to promote wound healing. It works via a suction device (negative pressure wound therapy) to remove low to moderate levels of exudate (drainage) and infectious materials. We recommend that the device stay in place for up to seven days, from day of surgery. 2. Day of Surgery___2/ Day of Removal ___09/07/17 3. The dressing should only be removed by a health healthcare consultant. Please arrange removal of device to coincide with Home Health visit and or with Nursing staff at Rehab 4. If skin reddening or irritation of skin occurs, or excessive drainage, please notify the Cardiovascular Surgeons office at [phone]. 5. Light showering is permissible; however the pump should be disconnected and placed in safe location, where it will not get wet. The dressing should not be exposed to direct spray or submerged in water. No bath tub / shower only. Ensure the end of the tubing attached to the dressing is facing down so that water does not enter the top of the tube. 6. To remove Prevena dressing: press purple button to turn off device / remove the suction. Then disconnect the tubing from the pump. The fixation strips should be stretched away from the skin and the dressing lifted at one corner and peeled back until it has been fully removed. 7. After removal, it is ok to shower daily using liquid dial soap and clean wash cloth, rinse and pat dry, and leave incision open to air dry. For any concerns regarding Prevena dressing, and or wounds, please contact Lucina Orr, patient navigator at [phone] or notify the Cardiovascular Surgeons office at [phone]. Incentive spirometry Q1 hr x 10, while awake, also use acapella device hourly whole awake Sternal Breast Bone Precautions: NO pushing or pulling, ( pt must use sternal pillow to support chest with all activities and with coughing ( takes up to 3 months breast bone to heal ) All females to wear sternal bra , launder as needed Daily incision care: ok to shower daily, no tub bath. Wash all incisions with liquid dial soap, clean wash cloth to each site, rinse and pat dry. Observe for any signs of infection, such as drainage which is dark yellow, aquino, green or foul smelling. Immediately report to the surgeon any drainage from the chest incision, or legs, and for any abnormal drainage from the chest tube sites. Notify surgeon if any temp >101.5 degrees F. When specialty dressing removed/ or if you do not have one, continue to shower daily as above, then rinse and pat incision dry and paint with betadine daily x 5 days. Allow steri strips to fall off if you have any. Avoid lotions, creams, salves, oils, etc. for the first month Please see attached forms for additional instructions regarding post Open Heart specialty wound vacuum dressings. MARTHA or Prevena , Dressing to be removed by Nursing staff on For Dr. Acosta patients , please obtain PT/INR in 1-[address] Acosta ( prescription will be given) ( ) (Tele: [phone]) , F/U appointment: as per DC instructions: PCP in 2 weeks, CV surgeon 2 weeks, Campus Security Officer 3-4 weeks For any questions regarding incisions/ dressing / meds / post op care or above Symptoms, Monday 8am-5pm Heart & Vascular Surgery Office ( Dr. Acosta & Dr. Monroe), After Hours / Nights (5pm -8am) Weekends and Holidays Please call [facility] ([facility]) Charge Nurse I have seen patient Loy Longoria on 08/31/17. My clinical findings support the need for the requested home health care services because: Deconditioned w/ increased weakness I certify that my clinical findings support that this patient is homebound because: Post-op weakness PT/INR 1-2 days, goal 2-2.5 x 6 weeks Danna Alfaro Aug 31, 2017 16:17
[2017-08-31] MEDS: ONDANSETRON HCL 4 MG/2 ML VIAL IV PUSH PRN ×2 (17:12→19:49)
[2017-08-31] MEDS: ALBUMIN 5% INJ 250 ML IV PRN ×2 (17:27→19:48)
[2017-08-31] MEDS ORDERED: NOREPINEPHRINE 4 MG/D5W 250 ML IV PRN (19:45)
[2017-08-31 20:00] VITALS: BP_SYST 112; BP_DIAS 51; BP_DIAS 62; PULSE 110; PULSE 111; RESP 18; TEMP 98.7; O2SAT 98
[2017-08-31] MEDS: ceFAZolin 2 GM PREMIX 50 ML IV SCH (20:50)
[2017-08-31] MEDS: SODIUM CHLORIDE 0.9% FLUSH 10 ML FLUSH IV FLUSH SCH (20:58)
[2017-08-31] MEDS ORDERED: AMIODARONE 200 MG TAB PO SCH (21:00)
[2017-08-31 21:07] VITALS: O2SAT 98
[2017-08-31] MEDS ORDERED: PROMETHAZINE INJ 25 MG/ML VIAL IM ONE (21:15)
[2017-09-01] VITALS (19 sets, daily range): BP systolic 94–128; BP diastolic 44–71; PULSE 90–100; RESP 16–20; TEMP 98–99.5; O2SAT 95–100
[2017-09-01] MEDS: ACETAMINOPHEN 1000 MG/100 ML 100 ML IV SCH ×2 (03:00→09:37)
[2017-09-01] MEDS: RESP: ALBUTEROL 2.5 MG/IPRATROPIUM 0.5 MG NEB (SCH) NEB ×5 (03:19→22:31)
[2017-09-01] MEDS: ceFAZolin 2 GM PREMIX 50 ML IV SCH ×3 (04:00→20:00)
[2017-09-01 04:55] LABS: HEMATOCRIT 27.5 % (35.0-46.0); HEMOGLOBIN 9.2 GM/DL (11.6-15.3); MEAN CELL VOLUME 90.7 FL (80.0-100.0); MEAN CORPUSCULAR HEMOGLOBIN 30.4 PG (27.0-34.0); MEAN CORPUSCULAR HGB CONC 33.5 % (32.0-36.0); MEAN PLATELET VOLUME 9.4 FL (7.0-11.0); PLATELET COUNT 50 TH/MM3 (150-450); RED BLOOD COUNT 3.03 MIL/MM3 (4.00-5.30); RED CELL DISTRIBUTION WIDTH 14.1 % (11.6-17.2); WHITE BLOOD COUNT 14.5 TH/MM3 (4.0-11.0)
[2017-09-01 05:14] LABS: BICARBONATE 28.2 MEQ/L (21.0-32.0); CREATININE 0.44 MG/DL (0.50-1.00); MAGNESIUM 2.1 MG/DL (1.5-2.5)
--- NOTE | 2017-09-01 05:36 | RADRPT ---
EXAM DATE/TIME: 09/01/2017 04:22 [facility] COMPARISON: CHEST SINGLE AP, August 31, 2017, 13:47. INDICATIONS : Status post CABG. MEDICAL HISTORY : Cardiovascular disease. SURGICAL HISTORY : Cardiac catheterization. ENCOUNTER: Subsequent ACUITY: 2 days PAIN SCORE: Non-responsive. LOCATION: chest FINDINGS: Right IJ line is present with tip overlapping the expected region of the SVC. Left basilar opacity is present may be due to a combination of consolidation and or pleural effusion. Mild right lung base a telectasis and/or infiltrate is seen. Chest tube is present on the right side. No definite pneumothor ax is seen for technique. Tiny right pleural effusion is also suspected. CONCLUSION: Left basilar opacity is present may be due to a combination of consolidation and or pleural effusion with a tiny right pleural effusion and slight right lung base atelectasis and/or infiltrate. Kayleen Baird MD on September 01, 2017 at 5:33 Board Certified Radiologist. This report was verified electronically.
[2017-09-01] MEDS: PANTOPRAZOLE SOD 40 MG DELAYED RELEASE TAB PO SCH (06:00)
[2017-09-01] MEDS ORDERED: GLUCAGON 1 MG/ML VIAL OTHER PRN (09:00)
[2017-09-01] MEDS ORDERED: SOD PHOSPHATE/SOD BIPHOSPHATE (ADULT) ENEMA 133ML RECTAL PRN (09:00)
[2017-09-01] MEDS ORDERED: DEXTROSE 50% IN WATER 50 ML VIAL(D50) IV PUSH PRN (09:00)
[2017-09-01] MEDS ORDERED: BISACODYL 10 MG SUPP RECTAL PRN (09:00)
[2017-09-01] MEDS ORDERED: ASPIRIN 81 MG CHEW TAB PO SCH (09:00)
--- NOTE | 2017-09-01 09:00 | PD.CAR.PN ---
CVT Progress Note Subjective/Hospital Course: 76-year-old female patient of Dr. Ernesto deutsch and Dr. Garret east that has been having some worsening shortness of breath of the past year also complaining of some intermittent palpitations. She had some atypical chest discomfort and had been noticing that she is beginning of breath for a easily. She is very active. She cartons walks that her walking. She has a little short of breath after couple blocks. She underwent echocardiogram at Dr. East' s office and then underwent transesophageal echocardiogram which showed an ejection fraction of 60-65%, moderate to severe mitral valve regurgitation. Posterior mitral valve leaflet prolapse, mild tricuspid regurgitation with some mild pulmonary hypertension range of 40-50 mmHg. There was no mitral valve stenosis, moderate thickening of the mitral valve leaflets. She then underwent cardiac cath today by Dr. East which showed no evidence of coronary disease. We were consulted to evaluate for mitral valve repair versus mitral valve replacement. PAST MEDICAL HISTORY: mitral valve regurgitation, History of palpitations, she has been on atenolol for over 30 years, chronic thrombocytopenia which has been worked up in the past , History of asthma. pt was elective admitted for Mitral valve replacement surgery: Minimally Invasive Mitral Valve Replacement with a 29 mm Mosaic Cinch Tissue Valve, Right Femoral Artery and Vein Cannulation, Primary Closure of Atrial Septal Defect crystalloid 3100cc, EBL 1000cc, 500cc cell saver Her operative course was complicated by sinus bradycardia, requiring epicardial pacing to maintain adequate cardiac output. At the conclusion of the case, she was extubated and sent to the CVICU. She came out of the OR on epinephrine at 5 mcg/min as an vasopressor. Pt was very somnolent, was placed on face mask , was very sleepy , extubated in OR with oral airway 2/16 now up in chair on 2 liter nasal cannula NSR with prolonged pr interval , eval to start amiodarone this evening BP labile , stable off Levo, will remove verdin cath will transfer later today to stepdown PLT count 50/ baseline 112 will monitor will need coumadin 2-2.5 for 6 weeks Objective: GENERAL: A&O x 3 SKIN: Warm and dry. incision intact right axillary area, small incision under axilla , prevena dressing right groin HEAD: Normocephalic. EYES: No scleral icterus. No injection or drainage. NECK: Supple, trachea midline. No JVD or lymphadenopathy. CARDIOVASCULAR: Regular rate and rhythm without murmurs, gallops, or rubs. RESPIRATORY: Breath sounds equal bilaterally. No accessory muscle use. diminished in bases, chest tube to wall suction, no air leak / drained 230cc/ 12hrs GASTROINTESTINAL: Abdomen soft, non-tender, nondistended. MUSCULOSKELETAL: No cyanosis, or edema. BACK: Nontender without obvious deformity. No CVA tenderness. Vital Signs Date Time Temp Pulse Resp B/P (MAP) Pulse Ox O2 Delivery O2 Flow Rate FiO2 09/01/17 04:00 92 09/01/17 04:00 99.0 92 16 110/50 (70) 98 112/45 (67) 09/01/17 04:00 92 09/01/17 04:00 98 Nasal Cannula 2.00 09/01/17 00:00 96 09/01/17 00:00 98.7 97 16 127/71 (89) 100 128/59 (82) 09/01/17 00:00 111 09/01/17 00:00 100 Nasal Cannula 2.00 08/31/17 21:07 98 Nasal Cannula 3.00 08/31/17 20:00 98 Nasal Cannula 3.00 08/31/17 20:00 111 08/31/17 20:00 98.7 111 18 112/62 (79) 98 112/51 (71) 08/31/17 20:00 110 08/31/17 19:51 120 96/44 08/31/17 18:30 95 Nasal Cannula 4.00 08/31/17 16:45 124 97/61 08/31/17 16:00 118 94/59 08/31/17 15:00 94.5 115 10 94/67 (76) 99 97/60 (72) 08/31/17 15:00 113 08/31/17 15:00 115 08/31/17 15:00 115 97/60 08/31/17 15:00 94.5 08/31/17 14:15 112 119/66 08/31/17 14:00 97 Non-Rebreather 100 08/31/17 14:00 79 111/54 08/31/17 13:46 96 Venturi Mask 6.00 50 08/31/17 13:45 79 108/52 08/31/17 13:31 97.5 113 8 101/68 (79) 88 94/51 (65) 08/31/17 13:31 79 08/31/17 13:31 79 08/31/17 13:31 91 Nasal Cannula 5.00 Labs: Laboratory Tests Test 09/01/17 04:15 White Blood Count 14.5 TH/MM3 (4.0-11.0) Red Blood Count 3.03 MIL/MM3 (4.00-5.30) Hemoglobin 9.2 GM/DL (11.6-15.3) Hematocrit 27.5 % (35.0-46.0) Mean Corpuscular Volume 90.7 FL (80.0-100.0) Mean Corpuscular Hemoglobin 30.4 PG (27.0-34.0) Mean Corpuscular Hemoglobin Concent 33.5 % (32.0-36.0) Red Cell Distribution Width 14.1 % (11.6-17.2) Platelet Count 50 TH/MM3 (150-450) Mean Platelet Volume 9.4 FL (7.0-11.0) Blood Urea Nitrogen 15 MG/DL (7-18) Creatinine 0.44 MG/DL (0.50-1.00) Random Glucose 85 MG/DL (74-106) Calcium Level 8.0 MG/DL (8.5-10.1) Magnesium Level 2.1 MG/DL (1.5-2.5) Sodium Level 141 MEQ/L (136-145) Potassium Level 4.2 MEQ/L (3.5-5.1) Chloride Level 108 MEQ/L (98-107) Carbon Dioxide Level 28.2 MEQ/L (21.0-32.0) Anion Gap 5 MEQ/L (5-15) Estimat Glomerular Filtration Rate 139 ML/MIN (>89) Result Diagram: 09/01/1741409/01/17414 Telemetry: post op rhythm sinus bryady/ vpaced, > tachyarrhythmia> now NSR with prolonged NC interval (1) Mitral valve regurgitation (2) Thrombocytopenia Plan: PLT 50/ baseline 112 (3) Asthma Plan: on nebs (4) S/P MVR (mitral valve replacement) Plan: hold amiodarone till this evening no BB at this point IS EZpap , pulm toileting OOB/ CM to eval for [facility] Danna Alfaro Sep 01, 2017 09:00
[2017-09-01] MEDS: MULTIVITAMINS/MINERALS THERAPEUTIC TAB PO SCH (09:37)
[2017-09-01] MEDS: MAGNESIUM HYDROXIDE SUSP 30 ML CUP PO SCH (09:37)
[2017-09-01] MEDS: DOCUSATE SODIUM 100 MG CAP PO SCH ×2 (09:37→21:21)
[2017-09-01] MEDS: SODIUM CHLORIDE 0.9% FLUSH 10 ML FLUSH IV FLUSH SCH ×2 (09:38→21:21)
[2017-09-01] MEDS: INSULIN ASPART SUPPLEMENTAL SCALE SQ SCH ×4 (10:00→22:00)
[2017-09-01] MEDS: ACETAMINOPHEN/HYDROcodone 325 MG/5 MG TAB PO PRN ×2 (15:42→22:08)
[2017-09-01] MEDS: SENNOSIDES 8.6 MG TAB PO SCH (21:21)
[2017-09-01] MEDS: AMIODARONE 200 MG TAB PO SCH (21:21)
--- NOTE | 2017-09-01 23:57 | EKG ---
Date Performed: 09/01/2017 Time Performed: 04:55:54 PTAGE: 76 years EKG: Sinus rhythm with 1st degree A-V block Left axis deviation rSr'(V1) - probable normal variant Inferior infarct - age undetermined Low QRS voltages in limb leads Abnormal ECG PREVIOUS TRACING : 02/18/2003 14.29 Compared to prior tracing, inferior Q waves present DOCTOR: Emiyl Bradford Interpretating Date/Time 09/01/2017 23:55:26
[2017-09-02] VITALS (27 sets, daily range): BP systolic 94–106; BP diastolic 52–55; PULSE 83–102; RESP 18–20; TEMP 98–99.2; O2SAT 94–99
[2017-09-02] MEDS: INSULIN ASPART SUPPLEMENTAL SCALE SQ SCH ×2 (02:00→06:00)
[2017-09-02] MEDS: ceFAZolin 2 GM PREMIX 50 ML IV SCH (03:12)
[2017-09-02 04:54] LABS: AUTOMATED NEUTROPHIL # 9.8 TH/MM3 (1.8-7.7); BASOPHIL % 0.1 % (0.0-2.0); EOSINOPHIL % 0.1 % (0.0-4.0); HEMATOCRIT 26.8 % (35.0-46.0); LYMPH % 10.5 % (9.0-44.0); LYMPHOCYTE # 1.2 TH/MM3 (1.0-4.8); MEAN CELL VOLUME 91.1 FL (80.0-100.0); MEAN CORPUSCULAR HEMOGLOBIN 30.6 PG (27.0-34.0); MEAN CORPUSCULAR HGB CONC 33.6 % (32.0-36.0); MONO % 5.8 % (0.0-8.0); MONOCYTE # 0.7 TH/MM3 (0-0.9); NEUT % 83.5 % (16.0-70.0); PLATELET COUNT 54 TH/MM3 (150-450); RED BLOOD COUNT 2.95 MIL/MM3 (4.00-5.30); RED CELL DISTRIBUTION WIDTH 14.2 % (11.6-17.2); WHITE BLOOD COUNT 11.7 TH/MM3 (4.0-11.0)
[2017-09-02 05:08] LABS: INTERNATIONAL NORMALIZED RATIO 1.1 RATIO; PROTHROMBIN TIME - PATIENT 10.8 SEC (9.8-11.6)
[2017-09-02 05:23] LABS: BICARBONATE 32.2 MEQ/L (21.0-32.0); CALCIUM 7.4 MG/DL (8.5-10.1); CREATININE 0.58 MG/DL (0.50-1.00); MAGNESIUM 2.3 MG/DL (1.5-2.5)
[2017-09-02 05:37] LABS: CALCIUM-PROTEIN CORRECTED 8.7 MG/DL (8.5-10.1); TOTAL PROTEIN 4.8 GM/DL (6.4-8.2)
[2017-09-02] MEDS: PANTOPRAZOLE SOD 40 MG DELAYED RELEASE TAB PO SCH (06:26)
[2017-09-02] MEDS: RESP: ALBUTEROL 2.5 MG/IPRATROPIUM 0.5 MG NEB (SCH) NEB ×3 (08:36→20:19)
[2017-09-02] MEDS: ACETAMINOPHEN/HYDROcodone 325 MG/5 MG TAB PO PRN ×4 (08:44→19:49)
[2017-09-02] MEDS: MAGNESIUM HYDROXIDE SUSP 30 ML CUP PO SCH (08:45)
[2017-09-02] MEDS: DOCUSATE SODIUM 100 MG CAP PO SCH ×2 (08:45→20:52)
[2017-09-02] MEDS: MULTIVITAMINS/MINERALS THERAPEUTIC TAB PO SCH (08:45)
[2017-09-02] MEDS: AMIODARONE 200 MG TAB PO SCH ×2 (08:46→20:52)
[2017-09-02] MEDS: POLYETHYLENE GLYCOL 17 GM PKG PO SCH (08:46)
[2017-09-02] MEDS: SODIUM CHLORIDE 0.9% FLUSH 10 ML FLUSH IV FLUSH SCH ×2 (08:46→20:53)
--- NOTE | 2017-09-02 11:04 | PD.CAR.PN ---
CVT Progress Note CVT: POD #: 2 Subjective/Hospital Course: 76-year-old female patient of Dr. Ernesto deutsch and Dr. Garret east that has been having some worsening shortness of breath of the past year also complaining of some intermittent palpitations. She had some atypical chest discomfort and had been noticing that she is beginning of breath for a easily. She is very active. She cartons walks that her walking. She has a little short of breath after couple blocks. She underwent echocardiogram at Dr. East' s office and then underwent transesophageal echocardiogram which showed an ejection fraction of 60-65%, moderate to severe mitral valve regurgitation. Posterior mitral valve leaflet prolapse, mild tricuspid regurgitation with some mild pulmonary hypertension range of 40-50 mmHg. There was no mitral valve stenosis, moderate thickening of the mitral valve leaflets. She then underwent cardiac cath today by Dr. East which showed no evidence of coronary disease. We were consulted to evaluate for mitral valve repair versus mitral valve replacement. PAST MEDICAL HISTORY: mitral valve regurgitation, History of palpitations, she has been on atenolol for over 30 years, chronic thrombocytopenia which has been worked up in the past , History of asthma. pt was elective admitted for Mitral valve replacement surgery: Minimally Invasive Mitral Valve Replacement with a 29 mm Mosaic Cinch Tissue Valve, Right Femoral Artery and Vein Cannulation, Primary Closure of Atrial Septal Defect crystalloid 3100cc, EBL 1000cc, 500cc cell saver Her operative course was complicated by sinus bradycardia, requiring epicardial pacing to maintain adequate cardiac output. At the conclusion of the case, she was extubated and sent to the CVICU. She came out of the OR on epinephrine at 5 mcg/min as an vasopressor. Pt was very somnolent, was placed on face mask , was very sleepy , extubated in OR with oral airway 09/01 now up in chair on 2 liter nasal cannula NSR with prolonged pr interval , eval to start amiodarone this evening BP labile , stable off Levo, will remove verdin cath will transfer later today to stepdown PLT count 50/ baseline 112 will monitor will need coumadin 2-2.5 for 6 weeks 09/02/17 No complaints, doing well Objective: Vital Signs Date Time Temp Pulse Resp B/P (MAP) Pulse Ox O2 Delivery O2 Flow Rate FiO2 09/02/17 10:08 19 09/02/17 10:00 96 09/02/17 09:00 102 09/02/17 08:36 94 21 09/02/17 08:00 92 09/02/17 07:15 98.6 97 20 106/55 (72) 97 09/02/17 07:15 91 09/02/17 06:00 87 09/02/17 05:00 91 09/02/17 04:00 96 09/02/17 03:00 100 09/02/17 03:00 99.2 98 106/55 (72) 94 09/02/17 02:00 96 09/02/17 01:00 96 09/02/17 00:00 98 09/01/17 23:00 98 09/01/17 23:00 99.0 100 108/57 (74) 95 09/01/17 22:35 96 21 09/01/17 22:00 90 09/01/17 21:00 92 09/01/17 20:00 94 09/01/17 19:00 96 09/01/17 19:00 98.0 94 100/57 (71) 97 09/01/17 18:00 96 09/01/17 17:00 95 09/01/17 16:00 95 09/01/17 15:00 99.5 96 20 115/57 (76) 99 09/01/17 15:00 99 Room Air 09/01/17 15:00 97 09/01/17 14:00 98 09/01/17 13:00 91 09/01/17 12:31 92 09/01/17 12:31 95 19 111/53 (72) 98 Labs: Laboratory Tests Test 09/02/17 04:00 White Blood Count 11.7 TH/MM3 (4.0-11.0) Red Blood Count 2.95 MIL/MM3 (4.00-5.30) Hemoglobin 9.0 GM/DL (11.6-15.3) Hematocrit 26.8 % (35.0-46.0) Mean Corpuscular Volume 91.1 FL (80.0-100.0) Mean Corpuscular Hemoglobin 30.6 PG (27.0-34.0) Mean Corpuscular Hemoglobin Concent 33.6 % (32.0-36.0) Red Cell Distribution Width 14.2 % (11.6-17.2) Platelet Count 54 TH/MM3 (150-450) Mean Platelet Volume 9.0 FL (7.0-11.0) Neutrophils (%) (Auto) 83.5 % (16.0-70.0) Lymphocytes (%) (Auto) 10.5 % (9.0-44.0) Monocytes (%) (Auto) 5.8 % (0.0-8.0) Eosinophils (%) (Auto) 0.1 % (0.0-4.0) Basophils (%) (Auto) 0.1 % (0.0-2.0) Neutrophils # (Auto) 9.8 TH/MM3 (1.8-7.7) Lymphocytes # (Auto) 1.2 TH/MM3 (1.0-4.8) Monocytes # (Auto) 0.7 TH/MM3 (0-0.9) Eosinophils # (Auto) 0.0 TH/MM3 (0-0.4) Basophils # (Auto) 0.0 TH/MM3 (0-0.2) CBC Comment AUTO DIFF Differential Comment AUTO DIFF CONFIRMED Platelet Estimate LOW (NORMAL) Platelet Morphology Comment NORMAL (NORMAL) Prothrombin Time 10.8 SEC (9.8-11.6) Prothromb Time International Ratio 1.1 RATIO Blood Urea Nitrogen 14 MG/DL (7-18) Creatinine 0.58 MG/DL (0.50-1.00) Random Glucose 112 MG/DL (74-106) Total Protein 4.8 GM/DL (6.4-8.2) Calcium Level 7.4 MG/DL (8.5-10.1) Magnesium Level 2.3 MG/DL (1.5-2.5) Sodium Level 140 MEQ/L (136-145) Potassium Level 4.0 MEQ/L (3.5-5.1) Chloride Level 105 MEQ/L (98-107) Carbon Dioxide Level 32.2 MEQ/L (21.0-32.0) Anion Gap 3 MEQ/L (5-15) Estimat Glomerular Filtration Rate 101 ML/MIN (>89) Protein Corrected Calcium 8.7 MG/DL (8.5-10.1) Result Diagram: 09/02/1739909/02/17399 Cardiovascular: RRR Telemetry: NSR Pulmonary: CTA GI/: NABS, NT Incision: dry and intact CT: 80ml/12hrs Plan: Remove chest tubes Start coumadin Encourage ambulation, up to chair No BB due to low BP today Plt count stable (1) Mitral valve regurgitation (2) Thrombocytopenia Plan: PLT 50/ baseline 112 (3) Asthma Plan: on nebs (4) S/P MVR (mitral valve replacement) Plan: hold amiodarone till this evening no BB at this point IS EZpap , pulm toileting OOB/ CM to eval for [facility] Fay Monroe MD Sep 02, 2017 11:04
[2017-09-02] MEDS: FUROSEMIDE 40 MG/4 ML VIAL IV PUSH SCH (12:07)
[2017-09-02] MEDS: POTASSIUM CHLORIDE 10 MEQ CONTROLLED RELEASE TAB PO SCH (12:07)
[2017-09-02] MEDS: WARFARIN SOD 3 MG TAB PO SCH (16:27)
[2017-09-02] MEDS: SENNOSIDES 8.6 MG TAB PO SCH (20:52)
[2017-09-03] VITALS (26 sets, daily range): BP systolic 96–102; BP diastolic 51–60; PULSE 76–104; RESP 16–22; TEMP 97.9–98.6; O2SAT 94–98
[2017-09-03 05:00] LABS: INTERNATIONAL NORMALIZED RATIO 1.1 RATIO; PROTHROMBIN TIME - PATIENT 11.2 SEC (9.8-11.6)
[2017-09-03] MEDS: ACETAMINOPHEN/HYDROcodone 325 MG/5 MG TAB PO PRN ×4 (05:14→19:20)
[2017-09-03] MEDS: PANTOPRAZOLE SOD 40 MG DELAYED RELEASE TAB PO SCH (05:14)
[2017-09-03] MEDS: RESP: ALBUTEROL 2.5 MG/IPRATROPIUM 0.5 MG NEB (SCH) NEB (08:32)
[2017-09-03] MEDS: MAGNESIUM HYDROXIDE SUSP 30 ML CUP PO SCH (09:02)
[2017-09-03] MEDS: MULTIVITAMINS/MINERALS THERAPEUTIC TAB PO SCH (09:03)
[2017-09-03] MEDS: POLYETHYLENE GLYCOL 17 GM PKG PO SCH (09:04)
[2017-09-03] MEDS: DOCUSATE SODIUM 100 MG CAP PO SCH ×2 (09:04→20:39)
[2017-09-03] MEDS: POTASSIUM CHLORIDE 10 MEQ CONTROLLED RELEASE TAB PO SCH (09:04)
[2017-09-03] MEDS: SODIUM CHLORIDE 0.9% FLUSH 10 ML FLUSH IV FLUSH SCH ×2 (09:11→20:39)
--- NOTE | 2017-09-03 11:47 | PD.CAR.PN ---
CVT Progress Note CVT: POD #: 3 Subjective/Hospital Course: 76-year-old female patient of Dr. Ernesto deutsch and Dr. Garret east that has been having some worsening shortness of breath of the past year also complaining of some intermittent palpitations. She had some atypical chest discomfort and had been noticing that she is beginning of breath for a easily. She is very active. She cartons walks that her walking. She has a little short of breath after couple blocks. She underwent echocardiogram at Dr. East' s office and then underwent transesophageal echocardiogram which showed an ejection fraction of 60-65%, moderate to severe mitral valve regurgitation. Posterior mitral valve leaflet prolapse, mild tricuspid regurgitation with some mild pulmonary hypertension range of 40-50 mmHg. There was no mitral valve stenosis, moderate thickening of the mitral valve leaflets. She then underwent cardiac cath today by Dr. East which showed no evidence of coronary disease. We were consulted to evaluate for mitral valve repair versus mitral valve replacement. PAST MEDICAL HISTORY: mitral valve regurgitation, History of palpitations, she has been on atenolol for over 30 years, chronic thrombocytopenia which has been worked up in the past , History of asthma. pt was elective admitted for Mitral valve replacement surgery: Minimally Invasive Mitral Valve Replacement with a 29 mm Mosaic Cinch Tissue Valve, Right Femoral Artery and Vein Cannulation, Primary Closure of Atrial Septal Defect crystalloid 3100cc, EBL 1000cc, 500cc cell saver Her operative course was complicated by sinus bradycardia, requiring epicardial pacing to maintain adequate cardiac output. At the conclusion of the case, she was extubated and sent to the CVICU. She came out of the OR on epinephrine at 5 mcg/min as an vasopressor. Pt was very somnolent, was placed on face mask , was very sleepy , extubated in OR with oral airway 09/01 now up in chair on 2 liter nasal cannula NSR with prolonged pr interval , eval to start amiodarone this evening BP labile , stable off Levo, will remove verdin cath will transfer later today to stepdown PLT count 50/ baseline 112 will monitor will need coumadin 2-2.5 for 6 weeks 09/02/17 No complaints, doing well 09/03/17 No complaints today. Objective: Vital Signs Date Time Temp Pulse Resp B/P (MAP) Pulse Ox O2 Delivery O2 Flow Rate FiO2 09/03/17 11:29 16 09/03/17 10:00 88 09/03/17 09:00 88 09/03/17 08:33 97 21 09/03/17 08:00 80 09/03/17 07:00 82 09/03/17 07:00 98.6 88 16 100/56 (71) 97 09/03/17 06:34 84 09/03/17 05:50 85 09/03/17 04:10 85 09/03/17 03:40 98.2 88 19 99/59 (72) 95 09/03/17 03:30 85 09/03/17 02:14 76 09/03/17 01:30 85 09/03/17 00:18 86 09/02/17 23:20 88 09/02/17 23:20 98.4 83 19 94/55 (68) 97 09/02/17 22:14 90 09/02/17 21:44 90 09/02/17 20:40 89 09/02/17 20:19 98 09/02/17 19:50 98.6 89 19 100/55 (70) 97 09/02/17 19:40 93 09/02/17 18:00 85 09/02/17 17:00 95 09/02/17 16:00 96 09/02/17 15:00 93 09/02/17 15:00 98.3 89 18 98/52 (67) 97 09/02/17 14:00 95 09/02/17 13:00 96 09/02/17 12:00 98 Labs: Laboratory Tests Test 09/03/17 03:55 Prothrombin Time 11.2 SEC (9.8-11.6) Prothromb Time International Ratio 1.1 RATIO Result Diagram: 09/02/17 0400 09/02/17 0400 Cardiovascular: RRR Telemetry: NSR Pulmonary: CTA GI/: NABS, NT Incision: dry and intact CT: 30ml/12 hrs Plan: Remove chest tube Encourage ambulation Stim BM No BB secondary to low BP Diurese (1) Mitral valve regurgitation (2) Thrombocytopenia Plan: PLT 50/ baseline 112 (3) Asthma Plan: on nebs (4) S/P MVR (mitral valve replacement) Plan: hold amiodarone till this evening no BB at this point IS EZpap , pulm toileting OOB/ CM to eval for [facility] Fay Monroe MD Sep 03, 2017 11:47
[2017-09-03] MEDS: FUROSEMIDE 40 MG/4 ML VIAL IV PUSH SCH (12:03)
[2017-09-03] MEDS: AMIODARONE 200 MG TAB PO SCH ×2 (12:03→20:39)
[2017-09-03] MEDS: WARFARIN SOD 3 MG TAB PO SCH (15:32)
[2017-09-03] MEDS: SENNOSIDES 8.6 MG TAB PO SCH (20:39)
[2017-09-04] VITALS (27 sets, daily range): BP systolic 96–104; BP diastolic 52–60; PULSE 76–100; RESP 18–20; TEMP 98–98.6; O2SAT 93–99
[2017-09-04] MEDS: PANTOPRAZOLE SOD 40 MG DELAYED RELEASE TAB PO SCH (05:06)
[2017-09-04 05:23] LABS: INTERNATIONAL NORMALIZED RATIO 1.3 RATIO; PROTHROMBIN TIME - PATIENT 12.7 SEC (9.8-11.6)
[2017-09-04] MEDS: ACETAMINOPHEN/HYDROcodone 325 MG/5 MG TAB PO PRN ×4 (06:35→23:42)
[2017-09-04] MEDS: MAGNESIUM HYDROXIDE SUSP 30 ML CUP PO SCH (07:45)
[2017-09-04] MEDS: FUROSEMIDE 40 MG/4 ML VIAL IV PUSH SCH (08:35)
[2017-09-04] MEDS: POTASSIUM CHLORIDE 10 MEQ CONTROLLED RELEASE TAB PO SCH (08:38)
[2017-09-04] MEDS: AMIODARONE 200 MG TAB PO SCH ×2 (08:39→20:20)
[2017-09-04] MEDS: POLYETHYLENE GLYCOL 17 GM PKG PO SCH (08:39)
[2017-09-04] MEDS: MULTIVITAMINS/MINERALS THERAPEUTIC TAB PO SCH (08:39)
[2017-09-04] MEDS: DOCUSATE SODIUM 100 MG CAP PO SCH ×2 (08:39→20:20)
[2017-09-04] MEDS: SODIUM CHLORIDE 0.9% FLUSH 10 ML FLUSH IV FLUSH SCH ×2 (08:39→20:20)
--- NOTE | 2017-09-04 09:56 | RADRPT ---
EXAM DATE/TIME: 09/04/2017 09:37 [facility] COMPARISON: CHEST SINGLE AP, September 01, 2017, 4:22. INDICATIONS : Evaluate for pneumothorax, post chest tube removal. MEDICAL HISTORY : Cardiovascular disease. SURGICAL HISTORY : Cardiac catheterization ENCOUNTER: Subsequent ACUITY: 4 - 6 days PAIN SCORE: 0/10 LOCATION: Bilateral chest FINDINGS: The heart is larger small bilateral effusions. There is been interval removal of a right-sided chest tube. There is a small right apical pneumothorax. The osseous structures are intact. CONCLUSION: 1. Small right apical pneumothorax post chest tube removal. 2. Small bilateral effusions with consolidative change in both lung bases. Romeo Henning MD on September 04, 2017 at 9:54 Board Certified Radiologist. This report was verified electronically.
[2017-09-04 14:19] LABS: HEMATOCRIT 29.1 % (35.0-46.0); HEMOGLOBIN 9.8 GM/DL (11.6-15.3); MEAN CELL VOLUME 92.1 FL (80.0-100.0); MEAN CORPUSCULAR HEMOGLOBIN 31.1 PG (27.0-34.0); MEAN CORPUSCULAR HGB CONC 33.8 % (32.0-36.0); MEAN PLATELET VOLUME 9.1 FL (7.0-11.0); PLATELET COUNT 127 TH/MM3 (150-450); RED BLOOD COUNT 3.16 MIL/MM3 (4.00-5.30); RED CELL DISTRIBUTION WIDTH 14.1 % (11.6-17.2); WHITE BLOOD COUNT 7.4 TH/MM3 (4.0-11.0)
--- NOTE | 2017-09-04 14:24 | PD.CAR.PN ---
CVT Progress Note Subjective/Hospital Course: 76-year-old female patient of Dr. Ernesto deutsch and Dr. Garret east that has been having some worsening shortness of breath of the past year also complaining of some intermittent palpitations. She had some atypical chest discomfort and had been noticing that she is beginning of breath for a easily. She is very active. She cartons walks that her walking. She has a little short of breath after couple blocks. She underwent echocardiogram at Dr. East' s office and then underwent transesophageal echocardiogram which showed an ejection fraction of 60-65%, moderate to severe mitral valve regurgitation. Posterior mitral valve leaflet prolapse, mild tricuspid regurgitation with some mild pulmonary hypertension range of 40-50 mmHg. There was no mitral valve stenosis, moderate thickening of the mitral valve leaflets. She then underwent cardiac cath today by Dr. East which showed no evidence of coronary disease. We were consulted to evaluate for mitral valve repair versus mitral valve replacement. PAST MEDICAL HISTORY: mitral valve regurgitation, History of palpitations, she has been on atenolol for over 30 years, chronic thrombocytopenia which has been worked up in the past , History of asthma. pt was elective admitted for Mitral valve replacement surgery: Minimally Invasive Mitral Valve Replacement with a 29 mm Mosaic Cinch Tissue Valve, Right Femoral Artery and Vein Cannulation, Primary Closure of Atrial Septal Defect crystalloid 3100cc, EBL 1000cc, 500cc cell saver Her operative course was complicated by sinus bradycardia, requiring epicardial pacing to maintain adequate cardiac output. At the conclusion of the case, she was extubated and sent to the CVICU. She came out of the OR on epinephrine at 5 mcg/min as an vasopressor. Pt was very somnolent, was placed on face mask , was very sleepy , extubated in OR with oral airway 09/01 now up in chair on 2 liter nasal cannula NSR with prolonged pr interval , eval to start amiodarone this evening BP labile , stable off Levo, will remove verdin cath will transfer later today to stepdown PLT count 50/ baseline 112 will monitor will need coumadin 2-2.5 for 6 weeks 09/02/17 No complaints, doing well 09/03/17 No complaints today. 09/04 remains in NSR, has some SOB with exertion, CXR noted, bilateral small effusion , continue diuresis continue to hold ASA with HX of thrombocytopenia continue coumadin/ INR 1.3 increased to 5mg continue pulm toileting Objective: Vital Signs Date Time Temp Pulse Resp B/P (MAP) Pulse Ox O2 Delivery O2 Flow Rate FiO2 09/04/17 14:00 100 09/04/17 13:00 86 09/04/17 12:00 87 09/04/17 11:00 88 09/04/17 11:00 98.2 88 20 102/60 (74) 99 09/04/17 10:00 88 09/04/17 09:00 90 09/04/17 08:15 98.0 84 20 96/52 (67) 96 09/04/17 08:15 84 09/04/17 07:37 93 21 09/04/17 07:00 84 09/04/17 05:08 84 09/04/17 04:03 81 09/04/17 03:56 82 09/04/17 03:56 98.3 84 20 104/58 (73) 95 09/04/17 02:32 81 09/04/17 01:29 80 09/04/17 00:28 82 09/03/17 23:20 98.0 82 19 99/56 (70) 94 09/03/17 23:20 82 09/03/17 22:49 78 09/03/17 21:30 80 09/03/17 21:00 21 09/03/17 20:30 82 09/03/17 19:50 85 09/03/17 19:50 98.1 87 20 98/53 (68) 95 09/03/17 18:00 86 09/03/17 17:00 88 09/03/17 16:35 16 09/03/17 16:00 98.1 92 18 96/51 (66) 98 09/03/17 16:00 90 09/03/17 15:00 90 Labs: Laboratory Tests Test 09/04/17 04:37 09/04/17 13:51 Prothrombin Time 12.7 SEC (9.8-11.6) Prothromb Time International Ratio 1.3 RATIO Result Diagram: 09/02/1739909/02/17399 Telemetry: NSR (1) Mitral valve regurgitation (2) Thrombocytopenia Plan: PLT 50/ baseline 112/ await new labs (3) Asthma Plan: on nebs (4) S/P MVR (mitral valve replacement) Plan: on amiodarone no BB at this point / with labile BP continue coumadin IS EZpap , pulm toileting OOB/ CM to eval for [facility] Danna Alfaro Sep 04, 2017 14:24
[2017-09-04 14:47] LABS: CALCIUM 8.4 MG/DL (8.5-10.1); CREATININE 0.46 MG/DL (0.50-1.00); MAGNESIUM 2.4 MG/DL (1.5-2.5)
[2017-09-04] MEDS: WARFARIN SOD 5 MG TAB PO SCH (16:03)
[2017-09-04] MEDS: SENNOSIDES 8.6 MG TAB PO SCH (20:20)
[2017-09-05] VITALS (31 sets, daily range): BP systolic 89–113; BP diastolic 52–67; PULSE 76–104; RESP 16–24; TEMP 97.7–98.1; O2SAT 94–97
[2017-09-05] MEDS: PANTOPRAZOLE SOD 40 MG DELAYED RELEASE TAB PO SCH (05:53)
[2017-09-05 06:10] LABS: INTERNATIONAL NORMALIZED RATIO 1.6 RATIO; PROTHROMBIN TIME - PATIENT 16.6 SEC (9.8-11.6)
[2017-09-05] MEDS: MAGNESIUM HYDROXIDE SUSP 30 ML CUP PO SCH (08:44)
[2017-09-05] MEDS: DOCUSATE SODIUM 100 MG CAP PO SCH ×2 (08:44→22:03)
[2017-09-05] MEDS: MULTIVITAMINS/MINERALS THERAPEUTIC TAB PO SCH (08:44)
[2017-09-05] MEDS: POTASSIUM CHLORIDE 10 MEQ CONTROLLED RELEASE TAB PO SCH (08:45)
[2017-09-05] MEDS: ACETAMINOPHEN/HYDROcodone 325 MG/5 MG TAB PO PRN ×3 (08:45→22:04)
[2017-09-05] MEDS: FUROSEMIDE 40 MG/4 ML VIAL IV PUSH SCH (08:45)
[2017-09-05] MEDS: AMIODARONE 200 MG TAB PO SCH ×2 (08:45→22:04)
[2017-09-05] MEDS: SODIUM CHLORIDE 0.9% FLUSH 10 ML FLUSH IV FLUSH SCH ×2 (08:45→21:10)
[2017-09-05] MEDS: POLYETHYLENE GLYCOL 17 GM PKG PO SCH (09:00)
--- NOTE | 2017-09-05 11:06 | PD.CAR.PN ---
CVT Progress Note Subjective/Hospital Course: 76-year-old female patient of Dr. Ernesto deutsch and Dr. Garret east that has been having some worsening shortness of breath of the past year also complaining of some intermittent palpitations. She had some atypical chest discomfort and had been noticing that she is beginning of breath for a easily. She is very active. She cartons walks that her walking. She has a little short of breath after couple blocks. She underwent echocardiogram at Dr. East' s office and then underwent transesophageal echocardiogram which showed an ejection fraction of 60-65%, moderate to severe mitral valve regurgitation. Posterior mitral valve leaflet prolapse, mild tricuspid regurgitation with some mild pulmonary hypertension range of 40-50 mmHg. There was no mitral valve stenosis, moderate thickening of the mitral valve leaflets. She then underwent cardiac cath today by Dr. East which showed no evidence of coronary disease. We were consulted to evaluate for mitral valve repair versus mitral valve replacement. PAST MEDICAL HISTORY: mitral valve regurgitation, History of palpitations, she has been on atenolol for over 30 years, chronic thrombocytopenia which has been worked up in the past , History of asthma. pt was elective admitted for Mitral valve replacement surgery: Minimally Invasive Mitral Valve Replacement with a 29 mm Mosaic Cinch Tissue Valve, Right Femoral Artery and Vein Cannulation, Primary Closure of Atrial Septal Defect crystalloid 3100cc, EBL 1000cc, 500cc cell saver Her operative course was complicated by sinus bradycardia, requiring epicardial pacing to maintain adequate cardiac output. At the conclusion of the case, she was extubated and sent to the CVICU. She came out of the OR on epinephrine at 5 mcg/min as an vasopressor. Pt was very somnolent, was placed on face mask , was very sleepy , extubated in OR with oral airway 09/01 now up in chair on 2 liter nasal cannula NSR with prolonged pr interval , eval to start amiodarone this evening BP labile , stable off Levo, will remove verdin cath will transfer later today to stepdown PLT count 50/ baseline 112 will monitor will need coumadin 2-2.5 for 6 weeks 09/02/17 No complaints, doing well 09/03/17 No complaints today. 09/04 remains in NSR, has some SOB with exertion, CXR noted, bilateral small effusion , continue diuresis continue to hold ASA with HX of thrombocytopenia continue coumadin/ INR 1.3 increased to 5mg continue pulm toileting 09/05 INR 1.6 still a little SOB with exertion, check CXR and limitied 2 D echo to r/o effusion start Symbicort and Singulair low dose steroids eval for dc in am Objective: GENERAL: A&O x 3 , still slightly SOB with exertion SKIN: Warm and dry. HEAD: Normocephalic. EYES: No scleral icterus. No injection or drainage. NECK: Supple, trachea midline. No JVD or lymphadenopathy. CARDIOVASCULAR: Regular rate and rhythm without murmurs, gallops, or rubs. RESPIRATORY: Breath sounds equal bilaterally. No accessory muscle use. few exp wheeze , coarse brth sounds on left GASTROINTESTINAL: Abdomen soft, non-tender, nondistended. MUSCULOSKELETAL: No cyanosis, or edema. BACK: Nontender without obvious deformity. No CVA tenderness. Vital Signs Date Time Temp Pulse Resp B/P (MAP) Pulse Ox O2 Delivery O2 Flow Rate FiO2 09/05/17 08:56 95 21 09/05/17 08:30 97.7 91 24 109/63 (78) 97 09/05/17 07:01 87 09/05/17 06:00 85 09/05/17 05:00 87 09/05/17 04:00 80 09/05/17 03:30 98.1 82 16 101/59 (73) 95 09/05/17 03:00 78 09/05/17 02:00 78 09/05/17 01:00 80 09/05/17 00:00 82 09/04/17 23:30 98.3 86 18 100/52 (68) 96 09/04/17 23:00 84 09/04/17 22:00 84 09/04/17 21:00 86 09/04/17 20:31 98 21 09/04/17 20:00 92 09/04/17 20:00 98.6 92 20 97/56 (70) 95 09/04/17 19:00 81 09/04/17 18:18 89 09/04/17 17:00 88 09/04/17 16:00 78 09/04/17 15:46 98.4 78 18 97/56 (70) 95 09/04/17 15:00 89 09/04/17 14:00 100 09/04/17 13:00 86 09/04/17 12:00 87 Labs: Laboratory Tests Test 09/05/17 05:07 Prothrombin Time 16.6 SEC (9.8-11.6) Prothromb Time International Ratio 1.6 RATIO Result Diagram: 09/04/17 1351 09/04/17 1351 (1) Mitral valve regurgitation (2) Thrombocytopenia Plan: PLT 50/ baseline 112> 127 (3) Asthma Plan: on nebs , add Symbicort and Singulair low dose steroids (4) S/P MVR (mitral valve replacement) Plan: on amiodarone no BB at this point / with labile BP continue coumadin INR 1.6 IS emilio Aiken toileting OOB/ CM to eval for [facility] Danna Alfaro Sep 05, 2017 11:06
[2017-09-05] MEDS: methylPREDNISolone SOD SUCC 40 MG/1 ML VIAL IV PUSH SCH ×2 (13:29→22:03)
--- NOTE | 2017-09-05 14:12 | RADRPT ---
EXAM DATE/TIME: 09/05/2017 12:36 [facility] COMPARISON: CHEST SINGLE AP, September 04, 2017, 9:37. INDICATIONS : Rule out pneumothorax and pleural effusion. MEDICAL HISTORY : Cardiovascular disease. SURGICAL HISTORY : Cardiac catheterization. ENCOUNTER: Subsequent ACUITY: 1 day PAIN SCORE: 0/10 LOCATION: Bilateral chest FINDINGS: Moderate-sized bilateral pleural effusions with meniscal interface and the costophrenic angles bilate rally, right greater than left, more prominent than on prior chest x-ray. There is persisting consol idation in the left lower lung with air bronchograms. Right apical pneumothorax measures 10 mm (prev iously measured 12 mm). The heart is normal size. CONCLUSION: 1. Reduction in size of right apical pneumothorax of 10 mm. 2. Increasing size bilateral pleural effusions. Braydon Eduardo MD on September 05, 2017 at 14:09 Board Certified Radiologist. This report was verified electronically.
[2017-09-05] MEDS: BUDESONIDE-FORMOTEROL 160/4.5 MCG INHALER INH SCH ×2 (15:04→22:04)
[2017-09-05] MEDS: WARFARIN SOD 5 MG TAB PO SCH (16:18)
[2017-09-05] MEDS ORDERED: DEXTROSE 5% IV ONE ×2 (19:45)
[2017-09-05] MEDS ORDERED: AMIODARONE IV ONE ×2 (19:45)
[2017-09-05] MEDS ORDERED: WATER IV ONE ×2 (19:45)
[2017-09-05] MEDS: MAGNESIUM SULFATE 1 GM PREMIX 100 ML IV SCH ×2 (19:50→21:10)
[2017-09-05] MEDS: SENNOSIDES 8.6 MG TAB PO SCH (20:07)
[2017-09-05] MEDS ORDERED: MONTELUKAST SODIUM 10 MG TAB PO SCH (21:00)
[2017-09-06] VITALS (19 sets, daily range): BP systolic 88–120; BP diastolic 54–66; PULSE 67–120; RESP 18; TEMP 97.7–98.2; O2SAT 96–98
[2017-09-06 04:49] LABS: INTERNATIONAL NORMALIZED RATIO 2.5 RATIO
[2017-09-06] MEDS: PANTOPRAZOLE SOD 40 MG DELAYED RELEASE TAB PO SCH (05:37)
[2017-09-06] MEDS ORDERED: POTASSIUM CHLORIDE 20 MEQ CONTROLLED RELEASE TAB PO ONE (08:45)
[2017-09-06] MEDS ORDERED: FUROSEMIDE 40 MG TAB PO ONE (08:45)
[2017-09-06] MEDS: MAGNESIUM HYDROXIDE SUSP 30 ML CUP PO SCH (08:52)
[2017-09-06] MEDS: methylPREDNISolone SOD SUCC 40 MG/1 ML VIAL IV PUSH SCH ×2 (08:52→09:00)
[2017-09-06] MEDS: MULTIVITAMINS/MINERALS THERAPEUTIC TAB PO SCH (08:52)
[2017-09-06] MEDS: BUDESONIDE-FORMOTEROL 160/4.5 MCG INHALER INH SCH (08:52)
[2017-09-06] MEDS: DOCUSATE SODIUM 100 MG CAP PO SCH (08:52)
[2017-09-06] MEDS: SODIUM CHLORIDE 0.9% FLUSH 10 ML FLUSH IV FLUSH SCH (08:52)
[2017-09-06] MEDS: AMIODARONE 200 MG TAB PO SCH (08:52)
[2017-09-06] MEDS: POLYETHYLENE GLYCOL 17 GM PKG PO SCH (09:00)
[2017-09-06] MEDS ORDERED: METOPROLOL TARTRATE 25 MG TAB PO SCH (10:45)
[2017-09-06] MEDS ORDERED: AMIODARONE 200 MG TAB PO ONE (11:00)
[2017-09-06 13:22] LABS: BICARBONATE 28.1 MEQ/L (21.0-32.0); CALCIUM 8.4 MG/DL (8.5-10.1); CREATININE 0.73 MG/DL (0.50-1.00); MAGNESIUM 2.8 MG/DL (1.5-2.5); PHOSPHORUS 3.3 MG/DL (2.5-4.9)
[2017-09-06] MEDS ORDERED: ASPI81TA23 PO (13:41)
[2017-09-06] MEDS ORDERED: METO25TA3 PO (13:41)
[2017-09-06] MEDS ORDERED: Budeson-Formot 160-4.5 Mcg Inh INH (13:41)
[2017-09-06] MEDS ORDERED: AMIO200T PO (13:41)
[2017-09-06] MEDS ORDERED: MONT10TA4 PO (13:41)
[2017-09-06] MEDS ORDERED: HYDR-3516 PO (13:41)
[2017-09-06] MEDS ORDERED: DOCU1CAP39 PO (13:41)
[2017-09-06] MEDS ORDERED: THERM PO (13:41)
[2017-09-06] MEDS ORDERED: COUM5TAB PO (13:41)
--- NOTE | 2017-09-06 13:55 | HHI.DS ---
Discharge Summary Admission Date Aug 31, 2017 at 05:31 Discharge Date: Sep 06, 2017 Admitting Diagnosis severe mitral regurgitation (1) Afib Diagnosis: Secondary ICD Codes: I48.91 - Unspecified atrial fibrillation (2) Mitral valve regurgitation Diagnosis: Principal ICD Codes: I34.0 - Nonrheumatic mitral (valve) insufficiency (3) Thrombocytopenia Diagnosis: Principal ICD Codes: D69.6 - Thrombocytopenia, unspecified Status: Chronic (4) Asthma Diagnosis: Principal ICD Codes: J45.909 - Unspecified asthma, uncomplicated Status: Chronic (5) S/P MVR (mitral valve replacement) Diagnosis: Secondary ICD Codes: Z95.2 - Presence of prosthetic heart valve Procedures 08/31 . Minimally Invasive Mitral Valve Replacement with a 29 mm Mosaic Cinch Tissue Valve . Right Femoral Artery and Vein Cannulation . Primary Closure of Atrial Septal Defect . Intercostal Nerve Block Brief History Subjective/Hospital Course: 76-year-old female patient of Dr. Ernesto deutsch and Dr. Garret east that has been having some worsening shortness of breath of the past year also complaining of some intermittent palpitations. She had some atypical chest discomfort and had been noticing that she is beginning of breath for a easily. She is very active. She cartons walks that her walking. She has a little short of breath after couple blocks. She underwent echocardiogram at Dr. East' s office and then underwent transesophageal echocardiogram which showed an ejection fraction of 60-65%, moderate to severe mitral valve regurgitation. Posterior mitral valve leaflet prolapse, mild tricuspid regurgitation with some mild pulmonary hypertension range of 40-50 mmHg. There was no mitral valve stenosis, moderate thickening of the mitral valve leaflets. She then underwent cardiac cath today by Dr. East which showed no evidence of coronary disease. We were consulted to evaluate for mitral valve repair versus mitral valve replacement. PAST MEDICAL HISTORY: mitral valve regurgitation, History of palpitations, she has been on atenolol for over 30 years, chronic thrombocytopenia which has been worked up in the past , History of asthma. pt was elective admitted for Mitral valve replacement surgery: Minimally Invasive Mitral Valve Replacement with a 29 mm Mosaic Cinch Tissue Valve, Right Femoral Artery and Vein Cannulation, Primary Closure of Atrial Septal Defect crystalloid 3100cc, EBL 1000cc, 500cc cell saver CBC/BMP: 09/04/17 1351 09/06/17 1230 Significant Findings Laboratory Tests Test 09/04/17 04:37 2/19/18 13:51 09/05/17 05:07 09/06/17 04:01 Prothrombin Time 12.7 SEC (9.8-11.6) 16.6 SEC (9.8-11.6) 25.0 SEC (9.8-11.6) Red Blood Count 3.16 MIL/MM3 (4.00-5.30) Hemoglobin 9.8 GM/DL (11.6-15.3) Hematocrit 29.1 % (35.0-46.0) Platelet Count 127 TH/MM3 (150-450) Blood Urea Nitrogen 20 MG/DL (7-18) Creatinine 0.46 MG/DL (0.50-1.00) Calcium Level 8.4 MG/DL (8.5-10.1) Test 09/06/17 12:30 Blood Urea Nitrogen 19 MG/DL (7-18) Random Glucose 118 MG/DL (74-106) Calcium Level 8.4 MG/DL (8.5-10.1) Magnesium Level 2.8 MG/DL (1.5-2.5) Estimat Glomerular Filtration Rate 77 ML/MIN (>89) Imaging Last Impressions Chest X-Ray 09/05/17 0000 Signed Impressions: Service Date/Time: Tuesday, September 05, 2017 12:36 - CONCLUSION: 1. Reduction in size of right apical pneumothorax of 10 mm. 2. Increasing size bilateral pleural effusions. Braydon Eduardo MD PE at Discharge GENERAL: A&O x 3 , slightly anxious SKIN: Warm and dry. incision intact and well approximated to right upper chest HEAD: Atraumatic. Normocephalic. EYES: Pupils equal and round. No scleral icterus. No injection or drainage. ENT: No nasal bleeding or discharge. Mucous membranes pink and moist. NECK: Trachea midline. No JVD. CARDIOVASCULAR: irregular rate and rhythm RESPIRATORY: No accessory muscle use. Clear to auscultation. Breath sounds equal bilaterally. GASTROINTESTINAL: Abdomen soft, non-tender, nondistended. Hepatic and splenic margins not palpable. MUSCULOSKELETAL: Extremities without clubbing, cyanosis, or edema. No obvious deformities. NEUROLOGICAL: Awake and alert. No obvious cranial nerve deficits. Motor grossly within normal limits. Five out of 5 muscle strength in the arms and legs. Normal speech. PSYCHIATRIC: Appropriate mood and affect; insight and judgment normal. Hospital Course surgery: Minimally Invasive Mitral Valve Replacement with a 29 mm Mosaic Cinch Tissue Valve, Right Femoral Artery and Vein Cannulation, Primary Closure of Atrial Septal Defect crystalloid 3100cc, EBL 1000cc, 500cc cell saver Her operative course was complicated by sinus bradycardia, requiring epicardial pacing to maintain adequate cardiac output. At the conclusion of the case, she was extubated and sent to the CVICU. She came out of the OR on epinephrine at 5 mcg/min as an vasopressor. Pt was very somnolent, was placed on face mask , was very sleepy , extubated in OR with oral airway 09/01 now up in chair on 2 liter nasal cannula NSR with prolonged pr interval , eval to start amiodarone this evening BP labile , stable off Levo, will remove verdin cath will transfer later today to stepdown PLT count 50/ baseline 112 will monitor will need coumadin 2-2.5 for 6 weeks 09/02/17 No complaints, doing well 09/03/17 No complaints today. 09/04 remains in NSR, has some SOB with exertion, CXR noted, bilateral small effusion , continue diuresis continue to hold ASA with HX of thrombocytopenia continue coumadin/ INR 1.3 increased to 5mg continue pulm toileting 09/05 INR 1.6 still a little SOB with exertion, check CXR and limitied 2 D echo to r/o effusion start Symbicort and Singulair low dose steroids eval for dc in am 09/06 went into afib last night / rate controlled continue amiodarone , low dose BB added, additional K+ given on room air , lung sounds CTA INR therapeutic 2.5 stable for discharge today, discussed with Dr Acosta Pt Condition on Discharge: Good Discharge Disposition: Disch w/ Home Health Serv Discharge Instructions DIET: Follow Instructions for: Heart Healthy Diet, Coumadin (Warfarin) Diet Activities you can perform: Full Weight Bearing, Shower Only-No Bath Activities to avoid: Strenuous Activity, Driving Additional Activity Instructio: no lifting > 8 lbs or gallon of milk Follow up Referrals: Cardiology, Interventional - 4 Weeks @ [facility] Cardiology with Balaji East MD PCP Follow-up - 2 Weeks with Ernesto Flores MD PhD Surgical - 2 Weeks with Derek Acosta MD New Orders: PT/INR - 2-3 Days New Medications: Aspirin DR (Aspirin EC) 81 Mg Tabdr 81 MG PO DAILY for Blood Clot Prevention, #30 TAB 2 Refills Amiodarone (Amiodarone) 200 Mg Tab 200 MG PO Q12HR for heart rhythm, #28 TAB Docusate Sodium (Dok) 100 Mg Cap 100 MG PO DAILY for Constipation, #30 CAP 0 Refills Hydrocodone/Acetaminophen (Hydrocodone-Acetamin 5-325 mg) 5 Mg-325 Mg Tablet 1 TAB PO Q4H PRN for PAIN SCALE 1 TO 5, #40 TAB 0 Refills Metoprolol Tartrate (Metoprolol Tartrate) 25 Mg Tab 12.5 MG PO Q12HR for Blood Pressure Management, #30 TAB 2 Refills hold HR <60 SBP<100 Montelukast (Montelukast) 10 Mg Tab 10 MG PO HS for Asthma Management, #1 TAB 2 Refills Multiple Vitamins W/ Minerals (Thera M Plus) 1 Tab 1 TAB PO DAILY for multi vitamin, #30 TAB 2 Refills Warfarin (Coumadin) 5 Mg Tab 3 MG PO DAILY@16 for Blood Clot Prevention, #30 TAB goal range INR 2-2.5 hold for INR >3 coumadin for 6 weeks [Budeson-Formot 160-4.5 Mcg Inh] () 60 PUFF AERO 2 PUFF INH Q12HR, #1 INHALER 2 Refills Continued Medications: Albuterol 18 GM Inh (Ventolin Hfa 18 GM Inh) 90 Mcg/Act Aer 2 PUFF INH Q4-6H PRN for SHORTNESS OF BREATH, #1 INHALER 0 Refills Discontinued Medications: Atenolol (Atenolol) 25 Mg Tab 25 MG PO HS for Blood Pressure Management, #60 TAB 0 Refills Danna Alfaro Sep 06, 2017 13:55
[2017-09-06] MEDS ORDERED: POTASSIUM CHLORIDE 10 MEQ CONTROLLED RELEASE TAB PO ONE (14:00)
--- NOTE | 2017-09-07 11:48 | ECHRPT ---
Indication: Pericardial effusion CONCLUSIONS The left ventricular systolic function is mildly reduced with an estimated ejection fraction in the range of 45- 50%. Wall thickness is measured at the upper limits of normal. Normal left ventricular size. There is a trivial pericardial effusion present, does not appear hemodynamically significant mitral valve prosthesis, well seated with no obvious perivalvular leak, mean gradient = 3 mm hg BP: / HR: Rhythm: Other MEASUREMENTS (Male / Female) Normal Values Technical Quality:Fair 2D ECHO LV Diastolic Diameter PLAX 4.1 cm 4.2 - 5.9 / 3.9 - 5.3 cm LV Systolic Diameter PLAX 3.3 cm IVS Diastolic Thickness 1.0 cm 0.6 - 1.0 / 0.6 - 0.9 cm LVPW Diastolic Thickness 1.0 cm 0.6 - 1.0 / 0.6 - 0.9 cm LV Relative Wall Thickness 0.5 DOPPLER MV Peak Velocity 190.0 cm/s MV Peak Gradient 14.4 mmHg MV Mean Velocity 76.5 cm/s MV Mean Gradient 3.0 mmHg FINDINGS LEFT VENTRICLE The left ventricular systolic function is mildly reduced with an estimated ejection fraction in the range of 45- 50%. Wall thickness is measured at the upper limits of normal. Normal left ventricular size. PERICARDIUM There is a small pericardial effusion present. Myles Borges MD, FACC, FSCAI (Electronically Signed) Final Date:07 September 2017 11:48
== END 2017-09-06 15:36 | disposition home health service (06) | DRG 220 ==
LOC: HSDI 05:31 → HCVI 13:15 → HCPC 09-01 11:55
PROVIDERS: ADMIT Thoracic Surgery (Cardiothoracic Vascular Surgery); ATTEND Thoracic Surgery (Cardiothoracic Vascular Surgery)
PROC: 5A1221Z Performance of Cardiac Output, Continuous (ICD-10-PCS; 2017-08-31)
PROC: B246ZZ4 Ultrasonography of Right and Left Heart, Transesophageal (ICD-10-PCS; 2017-08-31)
PROC: 3E0T3BZ Introduction of Anesthetic Agent into Peripheral Nerves and Plexi, Percutaneous Approach (ICD-10-PCS; 2017-08-31)
PROC: 02RG0JZ Replacement of Mitral Valve with Synthetic Substitute, Open Approach (ICD-10-PCS; principal; 2017-08-31 07:16)
PROC: 02Q50ZZ Repair Atrial Septum, Open Approach (ICD-10-PCS; 2017-08-31 07:16)
DX: I34.0 Nonrheumatic mitral (valve) insufficiency (principal); Q21.1 Atrial septal defect; D69.6 Thrombocytopenia, unspecified; I27.20 Pulmonary hypertension, unspecified; I50.9 Heart failure, unspecified; J98.11 Atelectasis; R00.1 Bradycardia, unspecified; J45.909 Unspecified asthma, uncomplicated; R00.2 Palpitations; I48.91 Unspecified atrial fibrillation; Q67.6 Pectus excavatum; Z87.891 Personal history of nicotine dependence; I34.1 Nonrheumatic mitral (valve) prolapse
CPT/HCPCS: 36415; 71045; 80048; 80053; 82948; 83735; 84100; 84155; 85025; 85027; 85610; 86850; 86900; 86901; 86920; 87015; 87070; 87102; 87116; 87176; 87205; 87206; 87640; 87641; 88305; 88311; 93005; 93308; 93318; 94150; 94640; 94664; 94667; 94668; C9290; J0131; J0171; J0282; J0690; J1100; J1644; J1817; J1940; J2150; J2250; J2270; J2370; J2405; J2550; J2720; J2920; J3010; J3370; J3475; J3480; J7060; J7120; P9045; P9047